=== PATIENT | male | born 1950 | race African-American/Black ===

== ENCOUNTER 2016-12-21 05:24 | Emergency (ER) | payer MEDICARE ==
[2016-12-21 06:27] LABS: ALT (SGPT) 8 U/L (8-55); AST (SGOT) 25 U/L (5-34); Alkaline Phosphatase 90 U/L (40-150); Anion Gap 21 mmol/L (10-20); BUN (Urea Nitrogen) 48 mg/dL (8.4-25.7); Bilirubin, Total 0.4 mg/dL (0.2-1.2); CK (CPK) 56 U/L (30-200); Calc. Creatinine Clearance 0 mL/min (70-130); Calcium 9.5 mg/dL (7.8-10.44); Carbon Dioxide 27 mmol/L (23-31); Chloride 96 mmol/L (98-107); Estimated GFR-MDRD 8; Globulin 5.6 g/dL (2.4-3.5)
[2016-12-21 06:32] LABS: Troponin I 0.026 ng/mL (< 0.028)
[2016-12-21 06:42] LABS: #Eosinphils 0.3 thou/uL (0.0-0.7); #Lymphocytes 1.7 thou/uL (1.20-3.40); #Monocytes 0.9 thou/uL (0.11-0.59); #Neutrophils 6.9 thou/uL (1.40-6.50); %Basophils 0.2 % (0.0-1.0); %Eosinophils 3.1 % (0.0-10.0); %Lymphocytes 17.1 % (21.0-51.0); Hematocrit 39.4 % (42.0-52.0); Mean Platelet Volume 6.1 fL (7.4-10.4); Red Blood Cell (RBC) Count 4.19 mill/uL (4.70-6.10); White Blood Cell (WBC) Count 9.7 thou/uL (4.8-10.8)
--- NOTE | 2016-12-21 07:44 | RAD ---
AP VIEW CHEST: HISTORY: Dyspnea. FINDINGS: AP view chest was obtained on 12/21/16. Comparison is made to previous exam from 11/19/16. AP view chest demonstrates cardiomegaly. Pulmonary vascular congestion is seen. Chronic diffuse interstitial fibrotic change is seen throughout the lungs concerning for interstitia l fibrosis. No significant interval change is seen since the previous comparison exam. No evidence of pneumothorax is seen. IMPRESSION: Diffuse interstitial changes concerning for interstitial fibrotic changes. POS: [facility]
== END 2016-12-21 06:45 | disposition home or self-care (01) ==
LOC: ERS 05:24
DX: I13.2 Hypertensive heart and chronic kidney disease with heart failure and with stage 5 chronic kidney disease, or end stage renal disease (principal); E11.22 Type 2 diabetes mellitus with diabetic chronic kidney disease; N18.6 End stage renal disease; I50.9 Heart failure, unspecified; E78.5 Hyperlipidemia, unspecified; J44.9 Chronic obstructive pulmonary disease, unspecified; Z87.891 Personal history of nicotine dependence; Z79.4 Long term (current) use of insulin; Z99.2 Dependence on renal dialysis; Z79.899 Other long term (current) drug therapy
CPT/HCPCS: 71010; 80053; 82553; 83880; 84484; 85025; 93005; 94760

== ENCOUNTER 2017-01-03 22:37 | Inpatient (IN) | payer MEDICARE ==
[2017-01-03] MEDS ORDERED: Dextrose 50% Abboject 50 ML SYRINGE ONE (22:44)
[2017-01-03 23:33] LABS: #Eosinphils 0.3 thou/uL (0.0-0.7); #Monocytes 0.7 thou/uL (0.11-0.59); #Neutrophils 6.6 thou/uL (1.40-6.50); %Basophils 0.2 % (0.0-1.0); %Eosinophils 3.4 % (0.0-10.0); %Lymphocytes 11.7 % (21.0-51.0); %Monocytes 8.2 % (0.0-10.0); Hematocrit 37.9 % (42.0-52.0); Mean Platelet Volume 5.8 fL (7.4-10.4); Red Blood Cell (RBC) Count 4.02 mill/uL (4.70-6.10); White Blood Cell (WBC) Count 8.6 thou/uL (4.8-10.8)
--- NOTE | 2017-01-03 23:39 | RAD ---
PORTABLE CHEST: Comparison: 12-21-16, 11-19-16 History: Dyspnea. FINDINGS: Heart size is enlarged. Chronic interstitial lung changes are felt to be fairly similar to the prior examinations. No definite significant interval change. IMPRESSION: Chronic lung change. POS: [facility]
[2017-01-03] MEDS ORDERED: D5 1/2 NS w/20 mEq KCL 0 ML ONE (23:40)
[2017-01-03 23:48] LABS: Anion Gap 6 mmol/L (-14-95); T. Carbon Dioxide 33.3 mmol/L (1.0-85.0); pH (Venous) 7.431 (7.35-7.45); vO2 Saturation-calc 86.5 % (0.0-100.0)
[2017-01-03 23:50] LABS: Lactic Acid - Sepsis 3.1 mmol/L (0.5-2.2)
[2017-01-04 00:10] LABS: ALT (SGPT) 8 U/L (8-55); AST (SGOT) 26 U/L (5-34); Alkaline Phosphatase 90 U/L (40-150); Anion Gap 17 mmol/L (10-20); BUN (Urea Nitrogen) 39 mg/dL (8.4-25.7); Bilirubin, Total 0.5 mg/dL (0.2-1.2); Calc. Creatinine Clearance 0 mL/min (70-130); Calcium 9.4 mg/dL (7.8-10.44); Carbon Dioxide 30 mmol/L (23-31); Chloride 97 mmol/L (98-107); Estimated GFR-MDRD 8; Globulin 5.6 g/dL (2.4-3.5); Protein, Total 8.8 g/dL (5.8-8.1)
[2017-01-04] MEDS ORDERED: Dextrose 10% in Water 1,000 ML IV SCH (00:30)
[2017-01-04] MEDS ORDERED: Sodium Chloride 0.9% 100 ML ONE (00:38)
[2017-01-04] MEDS ORDERED: Ondansetron HCl/PF 4 MG/2 ML Vial IVP PRN ×2 (02:32→02:34)
[2017-01-04] MEDS ORDERED: Ondansetron ODT 4 MG TAB SL PRN (02:32)
[2017-01-04] MEDS ORDERED: Vancomycin HCl 1 GM in Sodium Chloride 0.9% 250 ML 250 ML IVPB SCH (02:34)
[2017-01-04] MEDS ORDERED: Ondansetron ODT 4 MG TAB PO PRN (02:34)
[2017-01-04] MEDS ORDERED: HumaLOG 300 UNITS/3 ML VIAL SC PRN (02:34)
[2017-01-04] MEDS ORDERED: Dextrose 50% Abboject 50 ML SYRINGE SLOW IVP PRN (02:34)
[2017-01-04 02:58] LABS: Bilirubin Negative (Negative); Blood, Urine Large (Negative); Glucose, Urine (Dipstick) Negative (Negative); Ketone, Urine Negative (Negative); Nitrite Negative (Negative); Protein, Urine (Dipstick) 100 mg/dL (Neg-Trace); Urobilinogen 0.2 mg/dL (0.2-1.0)
[2017-01-04] MEDS: Dextrose 10% in Water 1,000 ML IV SCH ×2 (02:59→18:14)
[2017-01-04 03:00] LABS: Bacteria/HPF None Seen HPF (None Seen); RBC/HPF 21-50 HPF (0-3); WBC/HPF 21-50 HPF (0-3)
[2017-01-04 03:02] LABS: Hyaline Casts/LPF 0-3 HYALINE CAST LPF (0-3 Hyaline); Oval Fat Bodies/HPF None Seen HPF (None Seen); Renal Epithelial 0-3 HPF (0-3); Sperm/HPF None Seen HPF (None Seen); Transitional Epithelial NONE SEEN HPF (0-3); Trichomonas/HPF None Seen HPF (None Seen); Yeast-All Forms None Seen HPF (None Seen)
[2017-01-04] MEDS ORDERED: Vancomycin HCl 1.25 GM in Sodium Chloride 0.9% 250 ML 250 ML IVPB PRN (03:07)
[2017-01-04] MEDS ORDERED: Vancomycin HCl 1 GM in Premix Bag 1 BAG IVPB PRN (03:07)
[2017-01-04] MEDS ORDERED: Vancomycin HCl 750 MG in Sodium Chloride 0.9% 250 ML 250 ML IVPB PRN (03:07)
[2017-01-04] MEDS ORDERED: HOLD VANCOMYCIN FOR LEVEL >20 FS PRN (03:08)
[2017-01-04] MEDS ORDERED: Vancomycin HCl 500 MG in Sodium Chloride 0.9% 100 ML IVPB PRN (03:08)
[2017-01-04] MEDS ORDERED: Vancomycin Sliding Scale 1 EACH FS SCH (03:15)
[2017-01-04 03:52] LABS: Hemoglobin A1c 5.5 % (4.0-6.0)
[2017-01-04 03:58] LABS: Hematocrit 36.7 % (42.0-52.0); Mean Platelet Volume 5.7 fL (7.4-10.4); Neutrophil 69 % (42-75); Red Blood Cell (RBC) Count 3.91 mill/uL (4.70-6.10); White Blood Cell (WBC) Count 6.9 thou/uL (4.8-10.8)
[2017-01-04 04:10] LABS: ALT (SGPT) Less than 7 U/L (8-55); AST (SGOT) 24 U/L (5-34); Alkaline Phosphatase 81 U/L (40-150); Anion Gap 14 mmol/L (10-20); BUN (Urea Nitrogen) 40 mg/dL (8.4-25.7); Bilirubin, Total 0.5 mg/dL (0.2-1.2); Calc. Creatinine Clearance 11 mL/min (70-130); Carbon Dioxide 29 mmol/L (23-31); Chloride 97 mmol/L (98-107); Estimated GFR-MDRD 8; Globulin 5.3 g/dL (2.4-3.5); Protein, Total 8.4 g/dL (5.8-8.1)
--- NOTE | 2017-01-04 04:27 | HP ---
DATE OF ADMISSION: 01/03/2017 PRIMARY CARE PHYSICIAN: Dr. Keli Chauhan at [facility] in [place], [place]. PRIMARY RECIPROCATING DRILL OPERATOR: Dr. Sow. CHIEF COMPLAINT: Altered mental status and low blood sugar. HISTORY OF PRESENT ILLNESS: This is a 66-year-old -[place] male, who presents to [facility] in transfer by EMS after patient apparently was feeling ill at home and fell out of his bed. According to the , the couple had [place] from [place], at which point, the pa tient felt weak and tired. The patient apparently had gone to lay down in bed when he began yelling out to his . The states that when he acts this way it usually heralds low blood glucose i n the context of known diabetes on insulin therapy. The patient was evaluated and apparently had al tered mentation at which point, the notified EMS personnel. Patient was initially evaluated by the EMS, at which point, an initial glucose was relayed to be in the mid teens. The patient receiv ed D50 x2 amps and was transferred to the emergency room for evaluation. The patient required furth er ampule of D50 as well as initiation of D5 normal saline. The patient was also noted in the emerg ency room with hypotension and hypothermia with a temperature in the 94.6 range. The patient was pl aced on a Nestor Hugger and given intravenous fluids as well as D50. The patient was also evaluated f or potential pneumonia after chest imaging showed chronic changes with questionable superimposed acu te infiltrates. Patient received IV vancomycin, cefepime, as well as D5 and D10 infusions. The pat ient and report the patient has had difficulty with intermittent hypoglycemia over several week s apparently seeing their primary care provider in the last 1-2 weeks. The patient states his insul in was not reduced and he continues to take NPH insulin at approximately 50 units twice daily. The patient also states he takes a short-acting insulin at approximately 10 units twice daily. The dequan ent admits he has known he has had diabetes since 1994 and he says it becomes more difficult to cont rol and maintain adequate glucose. The patient denies any recent travel history, vaccinations, expo sures. Review of the medical record does show any emergency room visit on 12/23/2016 for shortness of breath. The patient underwent evaluation including chest imaging during this visit; however, was transferred to the dialysis unit where he has hemodialysis Wednesday, Wednesday, and Wednesday. Patient states he has been compliant with his dialysis sessions. PAST MEDICAL HISTORY: 1. End-stage renal disease with hemodialysis Wednesday, Wednesday, and Wednesday. 2. History of healthcare-associated pneumonia, 11/2016. 3. Interstitial lung disease/chronic obstructive pulmonary disease. 4. 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 5. Secondary hyperparathyroidism of renal origin. 6. Rheumatoid arthritis. 7. Recurrent hypoglycemia. 8. Hypertension. 9. History of pericarditis. PAST SURGICAL HISTORY: 1. Status post cataract removal from the left eye. 2. Status post AV fistula placement. CURRENT MEDICATIONS: 1. Albuterol sulfate 2.5 mg nebulized q.i.d. p.r.n. 2. Enteric coated aspirin 325 mg 1 tab p.o. daily. 3. Symbicort 160/4.5 two puffs inhaled b.i.d. 4. Humulin R 10 units subcutaneously b.i.d. 5. Humulin N 50 units subcutaneously b.i.d. 6. Metoprolol tartrate 50 mg p.o. b.i.d. 7. Multivitamin 1 tab p.o. daily. 8. Renvela 1600 mg p.o. t.i.d. 9. Zocor 20 mg p.o. at bedtime. 10. Spiriva HandiHaler 18 mcg inhaled daily. 11. Zantac 150 mg 1 tab p.o. daily. ALLERGIES: PENICILLIN, AZITHROMYCIN, and NAPROXEN. FAMILY HISTORY: Positive for diabetes mellitus type 2. SOCIAL HISTORY: The patient is , accompanied by his in the emergency room. 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 No alcohol or illicit drug use. Minimal activities of daily living, especially on hemodialysis days Wednesday, Wednesday, and Wednesday. REVIEW OF SYSTEMS: The following complete review of systems was negative, unless otherwise mentione d in the HPI or below: Constitutional: Weight loss or gain, ability to conduct usual activities. Skin: Rash, itching. Eyes: Double vision, pain. ENT/Mouth: Nose bleeding, neck stiffness, pain, tenderness. Cardiovascular: Palpitations, dyspnea on exertion, orthopnea. Respiratory: Shortnes s of breath, wheezing, cough, hemoptysis, fever or night sweats. Gastrointestinal: Poor appetite, abdominal pain, heartburn, nausea, vomiting, constipation, or diarrhea. Genitourinary: Urgency, fr equency, dysuria, nocturia. Musculoskeletal: Pain, swelling. Neurologic/Psychiatric: Anxiety, de pression. Allergy/Immunologic: Skin rash, bleeding tendency. PHYSICAL EXAMINATION: VITAL SIGNS: On admission, blood pressure 94/53, pulse 62, respiratory rate 22, temperature 95.8 de grees rectally. O2 saturation 98% on room air. GENERAL APPEARANCE: This is a 66-year-old -[place] male, ill-appearing, alert, in no acute distress. HEENT: Pupils are equal, round, and reactive to light and accommodation. Extraocular muscles are i ntact. No scleral icterus, no conjunctival injection. Nares patent. OP is clear. Oral mucosa dry . Edentulous. NECK: Supple, no cervical adenopathy, no thyromegaly, no carotid bruits, no JVD appreciated. Cervi christie spine with full active and passive range of motion. CHEST: Diminished breath sounds in the bases bilaterally. CARDIOVASCULAR: S1, S2, without noted murmur. ABDOMEN: Rounded, soft, nontender, nondistended. Bowel sounds are positive in all four quadrants. There is no hepatosplenomegaly, no abdominal bruits, no rebound, or guarding appreciated. EXTREMITIES: Warm and dry with fair turgor. No clubbing, cyanosis, or asymmetric edema appreciated . Pulses palpable distally at the dorsalis pedis, posterior tibial, and popliteal arteries bilatera lly. Capillary refill less than 2 seconds. NEUROLOGIC: Cranial nerves II through XII are grossly intact. No focal or lateralizing signs appre ciated. GENITOURINARY: Rivera catheter in place with dark chuy urine. PERTINENT LABORATORY AND X-RAY FINDINGS: Sodium 140, potassium 4.1, chloride 97, CO2 of 30, BUN 39, creatinine 8.43 with estimated GFR of 8, glucose ranging between 37-106. Lactic acid level 3.1, ca lcium 9.4. LFTs within normal limits. Albumin 3.2. CBC showed a white blood cell count 8.6, hemog lobin 12, hematocrit 38, platelet count 406 with 77% neutrophils. Venous blood gas pH 7.43. Portab le chest x-ray dated 01/03/2017 showed chronic interstitial lung changes bilaterally. EKG dated by my interpretation, shows sinus mechanism with heart rates in the 60s. Attenuated R waves noted in the precordial leads. Normal axis. No acute ST-T wave changes appreciated. ASSESSMENT AND PLAN: 1. Sepsis/systemic inflammatory response syndrome. Suspected pulmonary source given chest imaging findings. Continue vancomycin renally dosed for dialysis. Continue cefepime 2 grams IV q.12 hours. Blood cultures x2 pending. Repeat serial lactate per sepsis protocol. Continue D5 water at 100 mL per hour. 2. Hypoglycemia. Suspect secondary to #1. Hold all insulin therapy. Continue D10 infusion intrav enously and monitor serial Accu-Cheks. 3. Hypothermia. Suspect secondarily to #1. Continue Nestor Hugger. Continue treatment as outlined in #1. 4. Diabetes mellitus type 2, insulin-requiring. The patient will need adjustment and titration of current diabetic regimen due to repetitive hypoglycemic episodes. 5. End-stage renal disease with hemodialysis. We will consult Nephrology Service for timing of nex t hemodialysis session. 6. Chronic macrocytic anemia secondary to chronic kidney disease. No current evidence to suggest a cute blood loss. Repeat CBC in the a.m. 7. Prophylaxis. Sequential compression devices while in bed. Pepcid 20 mg p.o. b.i.d. Wound Care consult. 8. Code status is FULL. Surrogate medical decision maker is patient's spouse.
[2017-01-04] MEDS: Acetaminophen 500 MG TAB PO PRN (07:30)
--- NOTE | 2017-01-04 08:15 | PDOC.PN ---
- Subjective Encounter Start Date: 01/04/17 Encounter Start Time: 08:15 Subjective: eating with at bedside, he feel better this morning - Objective Resuscitation Status: Resuscitation Status FULL:Full Resuscitation MAR Reviewed: Yes Vital Signs & Weight: Vital Signs (12 hours) Temp Pulse Resp BP Pulse Ox 01/04/17 07:20 97.9 F 68 16 108/62 92 L 01/04/17 04:00 97.6 F 61 16 104/57 L 92 L 01/04/17 02:34 95 01/04/17 02:05 97.9 F 91 18 109/57 L 95 Weight Weight 190 lb I&O: 01/03/17 01/04/17 01/05/17 06:59 06:59 06:59 Intake Total 950 Output Total 300 Balance 650 Result Diagrams: 01/04/17 03:35 01/04/17 03:35 Additional Labs: Accuchecks 01/04/17 01/04/17 01/04/17 07:56 06:18 04:19 POC Glucose 75 49 L* 155 H 01/04/17 01/04/17 01/04/17 02:27 01:21 00:20 POC Glucose 71 67 L 37 L* Phys Exam - Physical Examination Constitutional: NAD HEENT: PERRLA, moist MMs Neck: supple, full ROM Respiratory: no wheezing rhonchi Cardiovascular: RRR Gastrointestinal: soft, non-tender Musculoskeletal: no edema Neurological: non-focal Psychiatric: normal affect, A&O x 3 Deviation from normal: trauma to rt 1st MTP Dx/Plan (1) PNA (pneumonia) Code(s): J18.9 - PNEUMONIA, UNSPECIFIED ORGANISM Status: Acute (2) COPD (chronic obstructive pulmonary disease) Status: Chronic (3) Diabetes type 2, controlled Code(s): E11.9 - TYPE 2 DIABETES MELLITUS WITHOUT COMPLICATIONS Status: Chronic (4) ESRD (end stage renal disease) on dialysis Code(s): N18.6 - END STAGE RENAL DISEASE; Z99.2 - DEPENDENCE ON RENAL DIALYSIS Status: Chronic (5) H/O rheumatoid arthritis Code(s): Z87.39 - PERSONAL HISTORY OF DISEASES OF THE MS SYS AND CONN TISS Status: Chronic (6) Hypertension Code(s): I10 - ESSENTIAL (PRIMARY) HYPERTENSION Status: Chronic (7) ILD (interstitial lung disease) Code(s): J84.9 - INTERSTITIAL PULMONARY DISEASE, UNSPECIFIED Status: Chronic - Plan cont current plan of care, continue antibiotics dialysis today, continue regimen. asymptomatic hypoglycemic episode this am * .
[2017-01-04] MEDS ORDERED: Ipratropium Bromide 2.5 ml Neb NEB PRN (08:36)
[2017-01-04] MEDS ORDERED: Albuterol Sulfate 2.5 mg/3 ml Neb ONE (08:45)
[2017-01-04] MEDS: Albuterol Sulfate 2.5 mg/3 ml Neb NEB SCH ×4 (08:52→23:23)
[2017-01-04] MEDS ORDERED: Spiriva 18 MCG CAP (Box of 5 Caps) INH SCH (09:00)
[2017-01-04] MEDS ORDERED: Famotidine 20 MG TAB PO SCH ×2 (09:00)
[2017-01-04] MEDS ORDERED: FLU VACC TS2017-18 (>65YR) 0.5 ML SYRINGE IM ONE (09:00)
[2017-01-04] MEDS ORDERED: Non-Formulary Item 1 EACH (Zantac 150 MG) PO SCH (09:00)
[2017-01-04] MEDS: Amlodipine 10 MG TAB PO SCH (10:07)
[2017-01-04] MEDS: Aspirin 325 MG TAB PO SCH (10:07)
[2017-01-04] MEDS: guaiFENesin ER 600 MG TAB PO SCH ×2 (10:08→20:18)
[2017-01-04] MEDS: Multivit, Therapeutic 1 TAB PO SCH (10:09)
[2017-01-04] MEDS: Metoprolol Tartrate 50 MG TAB PO SCH (10:09)
[2017-01-04] MEDS: Cefepime 1 GM, Admixture Fee 1 EACH in Sodium Chloride 0.9% 100 ML IVPB SCH (10:09)
[2017-01-04 11:06] LABS: Vancomycin, Random 20.4 ug/mL (See Comment)
[2017-01-04 12:23] LABS: Vancomycin, Random 12.7 ug/mL (See Comment)
--- NOTE | 2017-01-04 12:34 | CON ---
DATE OF CONSULTATION: 01/04/2017 NEPHROLOGY CONSULTATION REASON FOR CONSULTATION: End-stage renal disease, on maintenance hemodialysis. HISTORY OF PRESENTING ILLNESS: This is a 66-year-old gentleman admitted for pneumonia and altered mental status, dialyzed Wednesday, Wednesday, and Wednesday. The patient denies no headache, numbness, tingling, or weakness. Denies any nausea, vomiting, or chest pain. He was being treated for sepsis as well as hypoglycemia. PAST MEDICAL HISTORY: Significant for end-stage renal disease, on hemodialysis Wednesday, Wednesday, and Wednesday; healthcare pneumonia; interstitial lung disease; anemia; rheumatoid arthritis; hyperglycemia; hypertension; diabetes mellitus; cataract; AV fistula; tunneled dialysis catheter. HOME MEDICATION: List reviewed. HOSPITAL MEDICATION: List reviewed. ALLERGIES: Reviewed. FAMILY HISTORY: Negative for ESRD. SOCIAL ECONOMIC HISTORY: No alcohol or drug use. REVIEW OF SYSTEMS: Fifteen point review of systems was performed and negative except positive noted above. GENERAL: Weakness-. HEAD: Headache-. NECK: No swelling or lumps. NOSE: No epistaxis or discharge. EYES: No diplopia or pain. RESPIRATORY: Dyspnea-. CARDIOVASCULAR: Chest pain-. GASTROINTESTINAL: Nausea-. /SENIOR CARE MANAGER: Hematuria-. MUSCULOSKELETAL: No joint pain. NEUROPSYCHIATIC SYSTEMS: No suicidal ideation. No ideation. SKIN: Denies any rash or ulcer. CONSTITUTIONAL: No fever or chills. PHYSICAL EXAMINATION: GENERAL: Patient is awake, alert. VITAL SIGNS: Afebrile, pulse 79, breathing at 16, blood pressure 108/62. GENERAL APPEARANCE AND MENTAL STATUS: Fair. HEAD/NECK: Normocephalic. Atraumatic. EYES: EOMI. No deformity. EARS: Clear. No ulcers. NOSE: Intact. No lesions. MOUTH: Clear. No discharge. THROAT: Clear. No exudate. LUNGS: Clear. No crackles. CARDIAC: S1, S2. No rub. ABDOMEN: Benign. BS+. GENITALIA/RECTUM: Rivera absent. BACK/EXTREMITIES: Edema 0+ Ulcer-. NEUROLOGICAL: Alert and motor intact. SKIN: Rash-. Bruise-. LYMPHATICS: Edema-. Ulcer-. LABORATORY DATA: Show hemoglobin 11.5. ASSESSMENT AND PLAN: 1. Stage 6 chronic kidney disease. We will plan hemodialysis per schedule today. 2. Hypertension, stable. 3. Anemia, stable. 4. Medications based on glomerular filtration rate are appropriate. MTDD
[2017-01-04 16:31] LABS: Oxyhemoglobin 82.6 % (94.0-97.0); Sodium 141 mmol/L (135-148)
[2017-01-04 16:35] LABS: Vent NO
[2017-01-04 16:36] LABS: Mode BAG/MASK
[2017-01-04] MEDS ORDERED: Propofol 1,000 MG/100 ML VIAL IV ONE (16:44)
[2017-01-04] MEDS ORDERED: Vecuronium 10 MG VIAL ONE (16:54)
[2017-01-04 16:57] LABS: Oxyhemoglobin 88.8 % (94.0-97.0); Sodium 138 mmol/L (135-148)
[2017-01-04 16:58] LABS: Mechanical Tidal Volume 450 ml; Mode AC; Vent YES
[2017-01-04 17:06] LABS: Troponin I Less than 0.010 ng/mL (< 0.028)
[2017-01-04] MEDS ORDERED: Calcium Chloride 1 GM/10 ML Abboject SYRINGE ONE (17:15)
[2017-01-04] MEDS ORDERED: EPINEPHrine 1 MG/10 ML Abboject SYRINGE ONE (17:15)
[2017-01-04] MEDS ORDERED: Sodium Bicarb 50 MEQ/50 ML Abboject 8.4% SYRINGE ONE (17:15)
[2017-01-04 17:22] LABS: Oxyhemoglobin 91.3 % (94.0-97.0); Sodium 137 mmol/L (135-148)
[2017-01-04] MEDS ORDERED: Vecuronium 10 MG VIAL IVP SCH (17:30)
[2017-01-04 17:53] LABS: Chloride 101 mmol/L (98-107)
[2017-01-04 17:54] LABS: Calcium 8.1 mg/dL (7.8-10.44)
[2017-01-04 17:56] LABS: Anion Gap 21 mmol/L (10-20); Carbon Dioxide 19 mmol/L (23-31)
[2017-01-04 17:58] LABS: Calc. Creatinine Clearance 19 mL/min (70-130); Estimated GFR-MDRD 15
[2017-01-04 17:59] LABS: BUN (Urea Nitrogen) 21 mg/dL (8.4-25.7)
[2017-01-04] MEDS ORDERED: Vecuronium Bromide 20 MG VIAL IV PRN (18:03)
[2017-01-04] MEDS ORDERED: Sedation Protocol FS SCH (18:04)
[2017-01-04] MEDS ORDERED: DISCONTINUE PREVIOUS NARCOTIC PAIN MEDICATIONS AND BENZODIAZEPINES FS SCH (18:24)
[2017-01-04] MEDS ORDERED: Lorazepam 2 MG/ML VIAL SLOW IVP PRN (18:24)
[2017-01-04 18:31] LABS: Mechanical Tidal Volume 450 ml; Mode AC; Modified Allen's Test NOT DONE; Vent YES
--- NOTE | 2017-01-04 20:00 | RAD ---
AP CHEST: History: Recent intubation. Date: 01-04-17 Comparison: 01-03-17 FINDINGS: AP chest demonstrates EKG leads seen over the chest. The patient has been intubated. Endotracheal tu be is in good position, distal tip above the abran. Diffuse interstitial and airspace opacities seen bilaterally, unchanged since the previous day's exa m. EKG leads seen over the chest. IMPRESSION: 1. Recent intubation with endotracheal tube in good position. 2. Airspace and interstitial changes unchanged since the previous day's exam. POS: [facility]
[2017-01-04] MEDS: Acetaminophen/Codeine 30-300mg Tablet PO SCH (20:18)
[2017-01-04] MEDS: Vecuronium 10 MG VIAL IV PRN ×2 (20:28→23:10)
[2017-01-04] MEDS: Sterile Water 10 ML VIAL IVP PRN ×2 (20:28→23:11)
[2017-01-04] MEDS: Dextrose 5% in Water 1,000 ML IV PRN (21:02)
[2017-01-04] MEDS ORDERED: Dextrose 5% in Water 1,000 ML IV PRN (21:14)
[2017-01-04] MEDS ORDERED: Sodium Chloride 0.45% 1,000 ML IV PRN (23:48)
[2017-01-05] MEDS: Sterile Water 10 ML VIAL IVP PRN ×3 (02:14→21:14)
[2017-01-05] MEDS: Vecuronium 10 MG VIAL IV PRN ×6 (02:14→21:14)
[2017-01-05] MEDS: HumaLOG 300 UNITS/3 ML VIAL SC PRN ×5 (02:19→18:17)
[2017-01-05 04:14] LABS: #Lymphocytes 1.3 thou/uL (1.20-3.40); #Monocytes 1.4 thou/uL (0.11-0.59); #Neutrophils 14.4 thou/uL (1.40-6.50); %Basophils 0.1 % (0.0-1.0); %Eosinophils 0.3 % (0.0-10.0); %Lymphocytes 7.6 % (21.0-51.0); %Monocytes 8.3 % (0.0-10.0); Hematocrit 38.6 % (42.0-52.0); Red Blood Cell (RBC) Count 4.22 mill/uL (4.70-6.10); White Blood Cell (WBC) Count 17.1 thou/uL (4.8-10.8)
[2017-01-05 04:26] LABS: Anion Gap 19 mmol/L (10-20); BUN (Urea Nitrogen) 26 mg/dL (8.4-25.7); Calc. Creatinine Clearance 15 mL/min (70-130); Calcium 8.6 mg/dL (7.8-10.44); Carbon Dioxide 23 mmol/L (23-31); Chloride 96 mmol/L (98-107); Estimated GFR-MDRD 12
--- NOTE | 2017-01-05 05:57 | CON ---
DATE OF CONSULTATION: 01/04/2017 HISTORY OF PRESENTING ILLNESS: Mr. Bear is a 66-year-old male followed for some time. I believe he has the usual interstitial pneumonitis pattern of rheumatoid lung disease. 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 Apparently, he was admitted early this morning with a diagnosis of hypoglycemia and sepsis and pneumonia. He had dialysis today. After dialysis, a code green followed by a code blue was called. He has arrived in the ICU after he was resuscitated. PAST MEDICAL HISTORY: Remarkable for: 1. Recent admission reportedly for pneumonia, November it is in the multiple dictations that he has obstructive lung disease. He does not have chronic obstructive pulmonary disease based on serial pulmonary function tests. 2. End-stage renal disease, on dialysis. 3. Hypertension. 4. History of pericarditis. 5. History of cataract surgery. 6. History of multiple vascular access procedures. 7. History of distant tobacco use, but it has been over 30 years ago. FAMILY HISTORY: Negative for lung disease at an early age. SOCIAL HISTORY: He is a nonsmoker, nondrinker. 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 REVIEW OF SYSTEMS: Not obtainable. PHYSICAL EXAMINATION: VITAL SIGNS: By exam, he has flail chest now, I suspect this is from CPR and chronic intermittent steroid use. His heart rate is in the 70s. Blood pressure 108/62, respiratory rate is 30 per mechanical ventilation. HEENT: His sclerae are anicteric. NEUROLOGIC: He is unresponsive after his code. NECK: Supple. LUNGS: Remarkable for crackles bilaterally. HEART: Regular rhythm. ABDOMEN: Soft. EXTREMITIES: Without asymmetry. LABORATORY DATA: White count 6.9, hemoglobin 11.5, platelets 380,000. Sodium 137, potassium 3.7, chloride 101, glucose 159. Remainder of his labs are pending. Blood gas after he was chemically paralyzed 7.25, CO2 of 44, pO2 of 75. Blood gas at 1629 was 7.13, CO2 of 68, pO2 of 75. Chest radiograph done at 1054 last night shows no changes in his interstitial markings. IMPRESSION: 1. Rheumatoid arthritis-induced interstitial lung disease. 2. ? co-existent infection. I did not interview him or see him when he came in , but the hypoglycemia could be associated with an infectious process. It does not appear hypoglycemia was responsible for his cardiac arrest. Post-arrest EKG showed lateral ST depression, but once he was chemically paralyzed, this had resolved by my review of the EKG. Cardiology has been consulted. His acid/ base disorder is predominantly respiratory and should improve with ventilation overnight. Chest radiograph still has not been released to the viewing system, although it has been done postcode. LUIS FERNANDO
[2017-01-05] MEDS: Albuterol Sulfate 2.5 mg/3 ml Neb NEB SCH ×4 (06:32→23:22)
[2017-01-05 07:55] LABS: Oxyhemoglobin 97.3 % (94.0-97.0); Sodium 135 mmol/L (135-148)
[2017-01-05 07:57] LABS: Mechanical Tidal Volume 450 ml; Modified Allen's Test POSITIVE; Vent YES
[2017-01-05 07:58] LABS: Mode AC; Pressure Support 10 cmH2O
--- NOTE | 2017-01-05 08:38 | RAD ---
PORTABLE UPRIGHT FRONTAL CHEST: Date: 01-05-17 Comparison: 01-04-17 History: Pneumonia, CPR. FINDINGS: There are prominent increased linear interstitial densities noted within both lung bases with underl vargas bronchiectatic change as well as severe honeycombing. There is a nasogastric tube extending into the left upper quadrant. Endotracheal tube is in proper p osition. There are superimposed airspace opacities identified within both lung bases in the lateral aspect of the mid left lung zone, improved since the 01-04-17 examination. IMPRESSION: 1. Improving nonspecific bilateral airspace disease. Severe chronic underlying basilar fibrotic jeronimo ge. POS: [facility]
[2017-01-05] MEDS: Metoprolol Tartrate 50 MG TAB PO SCH (08:55)
[2017-01-05] MEDS: Cefepime 1 GM, Admixture Fee 1 EACH in Sodium Chloride 0.9% 100 ML IVPB SCH (08:55)
[2017-01-05] MEDS: Multivit, Therapeutic 1 TAB PO SCH (08:55)
[2017-01-05] MEDS: Aspirin 325 MG TAB PO SCH (08:55)
[2017-01-05] MEDS: guaiFENesin ER 600 MG TAB PO SCH ×2 (08:55→20:03)
[2017-01-05] MEDS: Amlodipine 10 MG TAB PO SCH (08:55)
[2017-01-05] MEDS: Famotidine 20 MG TAB PO SCH (09:46)
--- NOTE | 2017-01-05 11:59 | EKG ---
Test Reason : CODE BLUE Blood Pressure : / mmHG Vent. Rate : 101 BPM Atrial Rate : 091 BPM P-R Int : 224 ms QRS Dur : 086 ms QT Int : 330 ms P-R-T Axes : 028 -40 173 degrees QTc Int : 427 ms Undetermined rhythm PVC's Left axis deviation Inferior infarct , age undetermined Abnormal ECG When compared with ECG of 04-JAN-2017 00:45, (Unconfirmed) Significant changes have occurred Confirmed by DR. Marielle FALK (3) on 01/05/2017 11:59:08 AM Referred By: GIA Confirmed By:DR. Marielle FALK
--- NOTE | 2017-01-05 12:00 | EKG ---
Test Reason : CODE BLUE Blood Pressure : / mmHG Vent. Rate : 102 BPM Atrial Rate : 100 BPM P-R Int : 200 ms QRS Dur : 088 ms QT Int : 356 ms P-R-T Axes : 012 -43 181 degrees QTc Int : 463 ms Undetermined rhythm PVC's Left axis deviation Inferior infarct (cited on or before 04-JAN-2017) Abnormal ECG When compared with ECG of 04-JAN-2017 16:36, (Unconfirmed) Current undetermined rhythm precludes rhythm comparison, needs review Inverted T waves have replaced nonspecific T wave abnormality in Anterior leads Confirmed by DR. Marielle FALK (3) on 01/05/2017 11:59:40 AM Referred By: GIA Confirmed By:DR. Marielle FALK
--- NOTE | 2017-01-05 12:01 | EKG ---
Test Reason : Blood Pressure : / mmHG Vent. Rate : 090 BPM Atrial Rate : 090 BPM P-R Int : 202 ms QRS Dur : 096 ms QT Int : 412 ms P-R-T Axes : 073 -19 153 degrees QTc Int : 504 ms Normal sinus rhythm Low voltage QRS Inferior infarct (cited on or before 04-JAN-2017) Prolonged QT Abnormal ECG When compared with ECG of 04-JAN-2017 16:38, (Unconfirmed) Previous ECG has undetermined rhythm, needs review Non-specific change in ST segment in Anterior leads T wave inversion no longer evident in Anterolateral leads Confirmed by DR. Marielle FALK (3) on 01/05/2017 12:00:30 PM Referred By: LETICIA Confirmed By:DR. Marielle FALK
--- NOTE | 2017-01-05 15:23 | PDOC.PN ---
- Subjective Encounter Start Date: 01/05/17 Encounter Start Time: 06:40 Pt seen for followup re: acute respiratory failure. Intubated, unable to provide history or complete ROS. - Objective Resuscitation Status: Resuscitation Status FULL:Full Resuscitation MAR Reviewed: Yes Vital Signs & Weight: Vital Signs (12 hours) Temp Pulse Resp BP BP Pulse Ox 01/05/17 14:52 89 132/68 01/05/17 13:00 83 121/53 L 01/05/17 12:58 80 30 H 99 01/05/17 12:00 98.4 F 72 32 H 97 01/05/17 10:21 78 93/55 L 01/05/17 08:55 100 147/91 H 01/05/17 08:00 97.9 F 100 30 H 147/91 H 100 01/05/17 07:44 97.9 F 100 30 H 100 01/05/17 06:35 100 158/73 H 01/05/17 06:32 102 H 30 H 99 01/05/17 04:00 98.8 F 26 H Weight Admit Weight 190 lb Weight 192 lb 14.472 oz Most Recent Monitor Data Heart Rate from ECG 88 NIBP 145/82 NIBP BP-Mean 100 Respiration from ECG 27 SpO2 100 I&O: 01/04/17 01/05/17 01/06/17 06:59 06:59 06:59 Intake Total 950 717.4 100 Output Total 300 15 200 Balance 650 702.4 -100 Result Diagrams: 01/05/17 03:36 01/05/17 03:36 Additional Labs: Accuchecks 01/05/17 01/05/17 01/05/17 13:39 11:50 09:54 POC Glucose 173 H 135 H 163 H 01/05/17 01/05/17 01/05/17 07:12 05:40 04:15 POC Glucose 131 H 149 H 131 H 01/05/17 01/04/17 01/04/17 02:09 23:48 21:56 POC Glucose 188 H 148 H 190 H 01/04/17 01/04/17 01/04/17 20:09 17:13 15:52 POC Glucose 256 H 140 H 113 H 01/04/17 06:25 POC Glucose 43 L* EKG Reviewed by me: Yes (Tele: NSR) Phys Exam - Physical Examination Intubated HEENT: moist MMs ETT Neck: no nodes Respiratory: clear to auscultation bilateral Cardiovascular: RRR Gastrointestinal: soft, non-tender, no distention, positive bowel sounds Musculoskeletal: pulses present No spontaneous movements of four limbs Deviation from normal: Unable to assess mood, affect or orientation to person, place or time Skin: no rash, normal turgor, cap refill <2 seconds Dx/Plan (1) Acute respiratory failure Code(s): J96.00 - ACUTE RESPIRATORY FAILURE, UNSP W HYPOXIA OR HYPERCAPNIA Status: Acute Qualifiers: Respiratory failure complication: hypoxia and hypercapnia Qualified Code(s) : J96.01 - Acute respiratory failure with hypoxia; J96.02 - Acute respiratory failure with hypercapnia; J96.02 - Acute respiratory failure with hypercapnia; J96.02 - Acute respiratory failure with hypercapnia (2) Sepsis Code(s): A41.9 - SEPSIS, UNSPECIFIED ORGANISM Status: Acute (3) DM2 (diabetes mellitus, type 2) Status: Chronic (4) ESRD (end stage renal disease) on dialysis Code(s): N18.6 - END STAGE RENAL DISEASE; Z99.2 - DEPENDENCE ON RENAL DIALYSIS Status: Chronic (5) Hypertension Code(s): I10 - ESSENTIAL (PRIMARY) HYPERTENSION Status: Chronic - Plan continue antibiotics * . Continue IV cefepime, IV vancomycin Pt intubated, mechanically ventilated. PCCM/cardiology/nephrology services following. Continue accuchecks, insulin sliding scale. Dialysis per nephrology service. Review of Systems - Medications/Allergies Allergies/Adverse Reactions: Allergies Allergy/AdvReac Type Severity Reaction Status Date / Time Penicillins Allergy Severe Anaphylaxis Verified 10/31/15 15:37 azithromycin [From Zithromax] Allergy Verified 01/04/17 03:49 naproxen sodium [From Aleve] AdvReac Verified 01/04/17 03:49 Medications: Current Medications Acetaminophen (Tylenol) 1,000 mg PO Q6H PRN PRN Reason: Headache/Fever or Mild Pain Last Admin: 01/04/17 07:30 Dose: 1,000 mg Acetaminophen/Codeine Phosphate (Tylenol #3) 1 tab PO HS JILLIAN Last Admin: 01/04/17 20:18 Dose: 1 tab Albuterol Sulfate (Ventolin) 2.5 mg NEB [id number] JILLIAN Last Admin: 01/05/17 12:58 Dose: 2.5 mg Amlodipine Besylate (Norvasc) 10 mg PO DAILY [facility] Last Admin: 01/05/17 08:55 Dose: 10 mg Aspirin (Aspirin) 325 mg PO DAILY [facility] Last Admin: 01/05/17 08:55 Dose: 325 mg Dextrose/Water (Dextrose 50%) 25 gm SLOW IVP PRN PRN PRN Reason: Hypoglycemia Last Admin: 01/04/17 06:24 Dose: 25 gm Famotidine (Pepcid) 20 mg PO DAILY [facility] Last Admin: 01/05/17 09:46 Dose: 20 mg Glucagon (Glucagon) 1 mg IM PRN PRN PRN Reason: Hypoglycemia Guaifenesin (Mucinex) 600 mg PO BID [facility] Last Admin: 01/05/17 08:55 Dose: 600 mg Cefepime HCl 1 gm/Miscellaneous Medication 1 each/ Sodium Chloride 100 mls @ 200 mls/hr IVPB Q24HR [facility] Last Admin: 01/05/17 08:55 Dose: 100 mls Dextrose/Water (D5w) 1,000 mls @ 75 mls/hr IV .[id number] PRN PRN Reason: Hypoglycemia Last Admin: 01/04/17 21:02 Dose: 1,000 mls Vancomycin HCl 1.25 gm/ Sodium (Chloride) 250 mls @ 166.667 mls/hr IVPB .AT DIALYSIS PRN PRN Reason: IF VANC LEVEL <= 5.0 Vancomycin HCl 1 gm/ Device 200 mls @ 200 mls/hr IVPB .AT DIALYSIS PRN PRN Reason: IF VANC LEVEL >5 AND <=10 Vancomycin HCl 750 mg/ Sodium (Chloride) 250 mls @ 250 mls/hr IVPB .AT DIALYSYS PRN PRN Reason: IF VANC LEVEL >10 AND <= 15 Last Admin: 01/04/17 14:55 Dose: 250 mls Vancomycin HCl 500 mg/ Sodium (Chloride) 100 mls @ 100 mls/hr IVPB .AT DIALYSIS PRN PRN Reason: IF VANC LEVEL >15 AND <=20 Fentanyl (Fentanyl Cadd) 250 mls @ 0 mls/hr IVPB INF JILLIAN; Titrate PRN Reason: Protocol Stop: 02/03/17 18:24 Fentanyl Citrate (Fentanyl Bolus) 250 mls @ 0 mls/hr IVPB PRN PRN; As Directed PRN Reason: VENTILATION SEDATION PROTOCOL Stop: 02/03/17 18:24 Dextrose/Water (D5w) 1,000 mls @ 0 mls/hr IV INF PRN; As Directed PRN Reason: HYPOGLYCEMIA PROTOCOL Sodium Chloride (1/2 Normal Saline) 1,000 mls @ 75 mls/hr IV .[id number] PRN PRN Reason: if BS still running high Insulin Human Lispro (Humalog) 0 units SC .MODERATE SLIDING SC PRN; Protocol PRN Reason: MODERATE SLIDING SCALE Last Admin: 01/05/17 13:40 Dose: 2 unit Ipratropium [place] (Atrovent) 2.5 ml NEB [id number] PRN PRN Reason: SOB &/or Wheezing Last Admin: 01/04/17 08:52 Dose: 2.5 ml Lorazepam (Ativan) 2 mg SLOW IVP Q2H PRN PRN Reason: Anxiety to achieve Tian 2-3 Stop: 02/03/17 18:24 Metoprolol Tartrate (Lopressor) 50 mg PO DAILY [facility] Last Admin: 01/05/17 08:55 Dose: 50 mg Miscellaneous Medication (Pharmacy To Dose) 0 each IVPB PRN PRN PRN Reason: [facility] Pharmacy to Dose Miscellaneous Medication (Sedation Protocol) 1 each FS ONE [facility] Stop: 02/03/17 18:05 Morphine Sulfate (Morphine Sulfate) 2 mg SLOW IVP Q2H PRN PRN Reason: TO ACHIEVE VOLODYMYR SCORE 2-3 Stop: 02/03/17 18:24 Multivitamins (Theragran) 1 tab PO DAILY [facility] Last Admin: 01/05/17 08:55 Dose: 1 tab Hold Vancomycin For (Level >20) 0 each FS .AT DIALYSIS PRN PRN Reason: HOLD VANC IS > 20 Discontinue Previous Narcotic Pain Medications And Benzodiazepines 1 each FS .ONE [facility] Stop: 02/03/17 18:24 Ondansetron HCl (Zofran Odt) 4 mg PO Q6H PRN PRN Reason: Nausea/Vomiting Ondansetron HCl (Zofran) 4 mg IVP Q6H PRN PRN Reason: Nausea/Vomiting Propofol (Diprivan) 1,000 mg IV INF PRN; Protocol PRN Reason: TO ACHIEVE TIAN SCORE 2-3 Stop: 02/03/17 18:24 Sodium Chloride (Flush - Normal Saline) 10 ml IVF Q12HR JILLIAN Last Admin: 01/05/17 09:46 Dose: 10 ml Sodium Chloride (Flush - Normal Saline) 10 ml IVF PRN PRN PRN Reason: Saline Flush Sterile Water (Water For Injection) 10 ml IVP Q1H PRN PRN Reason: NEEDED FOR RECONSTITUTION Last Admin: 01/05/17 05:34 Dose: 10 ml Vecuronium [place] (Norcuron) 10 mg IV Q1H PRN PRN Reason: Agitation Last Admin: 01/05/17 12:20 Dose: 10 mg
--- NOTE | 2017-01-05 17:03 | PRG ---
DATE OF SERVICE: 01/05/2017 SUBJECTIVE: Mr. Bear is not awake when his paralytics wore off. He is not following commands. An EEG has been ordered. OBJECTIVE: VITAL SIGNS: His heart rate is 89, blood pressure 132/68, respiratory rate is 30. LUNGS: Clear anteriorly. Laterally, he has crackles. HEART: Regular rhythm. ABDOMEN: Soft. LABORATORY DATA: White count 17.1, hemoglobin 11.8, platelets 357. Sodium 133 , potassium 5.1, chloride 96, bicarb 23, BUN 26, creatinine 5.8. Blood gas 7.42 , CO2 of 42, pO2 of 223. IMPRESSION: 1. Probable anoxic brain injury. 2. Status post cardiorespiratory arrest. PLAN: EEG. Cultures have been reviewed and they are negative so far. I had a long discussion with his about his history prior to admission. His hypoglycemia, based on her history, is most likely related to him taking his diabetes medicines the night before and not eating. She said she made dinner, but he said he were not hungry and did not eat much. I doubt he is septic and I doubt sepsis was the cause of his arrest. I suspect this was coronary artery related. We will continue with antimicrobial therapy for now. We will try to simplify therapy within 24-48 hours. Prognosis for functional recovery, I believe, is quite poor at this time. LUIS FERNANDO
--- NOTE | 2017-01-05 17:29 | PRG ---
DATE OF SERVICE: 01/05/2017 SUBJECTIVE: This is a 66-year-old gentleman with end-stage renal disease. The patient had a cardia c arrest last evening. PHYSICAL EXAMINATION: GENERAL: On examination, patient is resting. VITAL SIGNS: Afebrile, pulse 80, breathing at 16, blood pressure 145/82. HEENT: Normocephalic, atraumatic. NECK: Supple. No JVD. CHEST: Symmetrical and clear. CARDIOVASCULAR: Shows S1, S2. No rub. ABDOMEN: Soft. Bowel sounds positive. EXTREMITIES: No edema. LABORATORY DATA: Show hemoglobin of 11.8. ASSESSMENT AND RECOMMENDATIONS: 1. Stage 6 chronic kidney disease. No indication for dialysis. 2. Hypertension, stable. 3. Anemia, stable. 4. Medications based on glomerular filtration rate are appropriate.
[2017-01-05] MEDS: Acetaminophen/Codeine 30-300mg Tablet PO SCH ×2 (18:37→20:04)
[2017-01-06] MEDS: Dextrose 5% in Water 1,000 ML IV PRN ×2 (00:04→18:31)
[2017-01-06] MEDS: HumaLOG 300 UNITS/3 ML VIAL SC PRN ×2 (02:36→06:50)
[2017-01-06 05:06] LABS: #Eosinphils 0.1 thou/uL (0.0-0.7); #Monocytes 1.3 thou/uL (0.11-0.59); #Neutrophils 12.3 thou/uL (1.40-6.50); %Basophils 0.3 % (0.0-1.0); %Eosinophils 0.4 % (0.0-10.0); %Lymphocytes 6.7 % (21.0-51.0); Hematocrit 36.4 % (42.0-52.0); Mean Platelet Volume 6.1 fL (7.4-10.4); Red Blood Cell (RBC) Count 4.06 mill/uL (4.70-6.10); White Blood Cell (WBC) Count 14.8 thou/uL (4.8-10.8)
[2017-01-06 05:24] LABS: Anion Gap 17 mmol/L (10-20); BUN (Urea Nitrogen) 36 mg/dL (8.4-25.7); Calc. Creatinine Clearance 13 mL/min (70-130); Calcium 8.4 mg/dL (7.8-10.44); Carbon Dioxide 24 mmol/L (23-31); Chloride 92 mmol/L (98-107); Estimated GFR-MDRD 10
[2017-01-06] MEDS: Albuterol Sulfate 2.5 mg/3 ml Neb NEB SCH ×4 (06:38→23:54)
[2017-01-06 07:09] LABS: Mechanical Tidal Volume 450 ml; Mode AC; Oxyhemoglobin 89.7 % (94.0-97.0); Sodium 131 mmol/L (135-148); Vent YES
[2017-01-06] MEDS: Morphine 4 MG/ML Carpuject SLOW IVP PRN (07:14)
--- NOTE | 2017-01-06 07:51 | PDOC.PN ---
- Subjective Encounter Start Date: 01/06/17 Encounter Start Time: 07:47 Mr. Bear is intubated. He will awake to voice, and follow commands. He indicates no difficulty with breathing. - Objective Resuscitation Status: Resuscitation Status FULL:Full Resuscitation MAR Reviewed: Yes Vital Signs & Weight: Vital Signs (12 hours) Temp Pulse Resp Pulse Ox 01/06/17 06:38 70 01/06/17 04:00 98.9 F 01/06/17 00:00 98.4 F 30 H 01/05/17 23:22 96 30 H 100 01/05/17 22:00 30 H 01/05/17 20:00 98.7 F 93 30 H 100 Weight Admit Weight 190 lb Weight 194 lb 3.636 oz Most Recent Monitor Data Heart Rate from ECG 95 NIBP 106/50 NIBP BP-Mean 72 Respiration from ECG 33 SpO2 98 I&O: 01/05/17 01/06/17 01/07/17 06:59 06:59 06:59 Intake Total 717.4 1000 Output Total 15 455 Balance 702.4 545 Result Diagrams: 01/06/17 03:51 01/06/17 03:51 Additional Labs: Accuchecks 01/06/17 01/06/17 01/06/17 06:49 04:03 02:34 POC Glucose 158 H 168 H 170 H 01/06/17 01/05/17 01/05/17 00:10 22:28 20:16 POC Glucose 140 H 119 H 131 H 01/05/17 01/05/17 01/05/17 18:15 15:37 13:39 POC Glucose 151 H 220 H 173 H 01/05/17 01/05/17 01/04/17 11:50 09:54 06:25 POC Glucose 135 H 163 H 43 L* Phys Exam - Physical Examination HEENT: PERRLA + rhonchi bilaterally Cardiovascular: RRR, no significant murmur Gastrointestinal: soft, non-tender, positive bowel sounds Musculoskeletal: no edema Dx/Plan - Plan * Acute respiratory failure- possibly from Rheuamtoid Interstitial Lung disease , vs. Infectious Pneumonitis or both * Continue Meropenem and Vancomycin * Patient continue with Ventilator support * Hypoglycemia- resolved- continue SSI * ESRD- continue maintenance HD * Hyponatremia- likely will be corrected with dialysis * HTN- blood pressure is controlled.
[2017-01-06] MEDS: Propofol 1,000 MG/100 ML VIAL IV PRN (08:25)
--- NOTE | 2017-01-06 08:42 | EEG ---
Referring Physician: Marielle KELLY EEG # [id number] TEST TYPE: ROUTINE PORTABLE INPATIENT REPORT: AN EEG USING THE [employer]NATIONAL TEN-TWENTY SYSTEM OF ELECTRODE PLACEMENT WAS PERFORMED. The background activity is predominately a 6 hertz medium amplitude theta frequency. Some occasional, brief alpha activity is seen in some limited areas. No epileptiform features were present. Photic stimulation was unremarkable. IMPRESSION: THIS IS AN ABNORMAL STUDY FOR THE FINDINGS OF DIFFUSE SLOWING CONSISTENT WITH A DIFFUSE ENCEPHALOPATHIC PROCESS. NO EPILEPTIFORM FEATURES WERE NOTED. Surface Plate Finisher: AISLINN Eviction Specialist: EEG.SHI GOULD
[2017-01-06] MEDS ORDERED: Calcium Chloride 1 GM/10 ML Abboject SYRINGE ONE (10:00)
[2017-01-06] MEDS ORDERED: EPINEPHrine 1 MG/10 ML Abboject SYRINGE ONE (10:00)
[2017-01-06] MEDS ORDERED: Atropine Sulfate 1 mg/10 ml Syringe ONE (10:00)
[2017-01-06] MEDS: guaiFENesin ER 600 MG TAB PO SCH ×2 (10:14→21:44)
[2017-01-06] MEDS: Multivit, Therapeutic 1 TAB PO SCH (10:14)
[2017-01-06] MEDS: Famotidine 20 MG TAB PO SCH (10:15)
[2017-01-06] MEDS: Aspirin 325 MG TAB PO SCH (10:16)
[2017-01-06] MEDS: Amlodipine 10 MG TAB PO SCH (10:16)
[2017-01-06] MEDS: Metoprolol Tartrate 50 MG TAB PO SCH (10:16)
[2017-01-06] MEDS: Cefepime 1 GM, Admixture Fee 1 EACH in Sodium Chloride 0.9% 100 ML IVPB SCH (10:27)
[2017-01-06 10:28] LABS: Oxyhemoglobin 89.9 % (94.0-97.0); Sodium 130 mmol/L (135-148)
[2017-01-06] MEDS: Heparin 5,000 UNITS/ML VIAL SC SCH ×2 (10:28→21:44)
[2017-01-06 10:33] LABS: Mechanical Tidal Volume 450 ml; Mode AC/VC+; Vent YES
--- NOTE | 2017-01-06 11:29 | OP ---
DATE OF PROCEDURE: 01/06/2017 SERVICE: Pulmonary Medicine PROCEDURE: Emergent endotracheal intubation. CONSENT: Procedure was performed emergently secondary to clinical condition and respiratory failure . STAFF PHYSICIAN: Wali Quiles M.D. MEDICATIONS: None. PREPROCEDURE DIAGNOSES: Respiratory failure. POSTPROCEDURE DIAGNOSES: Respiratory failure. DESCRIPTION OF PROCEDURE: Vital sign monitoring was accomplished by noninvasive hemodynamic monitor ing, pulsoximetry and telemetry. In the supine position, the patient was preoxygenated with bag natividad ve mask ventilation maintaining saturations of 100%. Induction anesthesia was not required as the p atient was completely obtunded at that time. A GlideScope was inserted through the mouth, offering clear identification of the posterior oropharynx and laryngeal structures with a grade I view. An e ndotracheal tube was visualized passing through the vocal cords. Placement was confirmed by condens ation in the endotracheal tube, and by axillary chest auscultation. The endotracheal tube was secur ed at 24 cm, measured at the teeth. The patient was placed on mechanical ventilation with good retu rn of volumes. Post-procedure x-ray revealed good location of the endotracheal tube within the trachea. ESTIMATED BLOOD LOSS: None. COMPLICATIONS: None.
--- NOTE | 2017-01-06 12:18 | PRG ---
DATE OF SERVICE: 01/06/2017 SUBJECTIVE: This is a 66-year-old gentleman being seen for end-stage renal disease. The patient re sponds to simple commands. PHYSICAL EXAMINATION: GENERAL: Patient is resting. VITAL SIGNS: Afebrile, pulse 60, breathing at 16, blood pressure 85/41. OBJECTIVE: See above. Awake, alert, in no acute distress. GENERAL APPEARANCE AND MENTAL STATUS: Fair. HEAD/NECK: Normocephalic. Atraumatic. EYES: EOMI. No deformity. EARS: Clear. No ulcers. NOSE: Intact. No lesions. MOUTH: Clear. No discharge. THROAT: Clear. No exudate. LUNGS: Clear. No crackles. CARDIAC: S1, S2. No rub. ABDOMEN: Benign. BS+. GENITALIA/RECTUM: Rivera absent. BACK/EXTREMITIES: Edema 0+ Ulcer- NEUROLOGICAL: The patient is resting. SKIN: Rash- Bruise- LYMPHATICS: Edema- Ulcer- LABORATORY: Hemoglobin 11.5, potassium 4.5. ASSESSMENT AND RECOMMENDATIONS: 1. Stage 6 chronic kidney disease. No indication for dialysis. 2. Hypotension, would recommend 200 mL bolus titrate the blood pressure over 90. 3. Anemia, stable. 4. Medications based on glomerular filtration rate are appropriate.
--- NOTE | 2017-01-06 12:53 | RAD ---
UPRIGHT PORTABLE CHEST ONE VIEW: HISTORY: A 66-year-old male, post intubation, code blue, respiratory arrest. COMPARISON: 01/05/2017 FINDINGS: Monitor leads overly the chest. There is minimal motion artifact. Endotracheal tube is in a satisf actory location. It appears that the NG tube has been removed when compared to the prior study. Th ere are patchy bilateral interstitial and reticulonodular parenchymal changes throughout both lungs, which is stable. In addition, there appears to be a somewhat more confluent opacity in the right i nfrahilar region and right lower lobe, when compared to the prior study. The upper lung zones appea r stable. IMPRESSION: 1. The nasogastric tube is not definitely visualized 2. The endotracheal tube is in a satisfactory location. 3. Stable, chronic appearing, interstitial and reticulonodular parenchymal changes bilaterally with a somewhat more diffusely opaque density over the right infrahilar region and right lower lobe, pos sibly some new confluent parenchymal process. Continue short-term followup. POS: [facility]
[2017-01-06] MEDS: Fentanyl 20 MCG/ML 250 ML IVPB SCH (13:29)
--- NOTE | 2017-01-06 13:29 | CON ---
DATE OF CONSULTATION: 01/06/2017 REFERRING PHYSICIAN: Jesus Herrera M.D. and Gurinder Shaffer D.O. REASON FOR CONSULTATION: Bradycardia. HISTORY OF PRESENT ILLNESS: Mr. Bear is a 66-year-old black gentleman with rheumatoid lung dise ase; end-stage renal disease; and diabetes, managed on insulin. He presented on 01/03/2017 with alt ered mental status and blood sugars documented in the mid teens. He had apparently coded with CPR i n the emergency department due to profound hypotension, inability to get a pulse and documented hypo thermia with temperatures in the 94.6 degrees Fahrenheit range. He was resuscitated, placed on vent ilatory support, and was found to be markedly acidotic with a primary respiratory acidosis and pH of 7.2. He apparently was bradycardiac and after resuscitation with improved oxygenation and temperat ure, his heart rate returned to normal, and has remained stable until today. I spoke with Dr. Herrera via telephone on Wednesday evening after consult was initially called and his br adycardia had resolved and thought to be primarily due to hypoxia and profound acidosis. There was no urgent need for Cardiology consultation at that time per our conversation. Earlier today, however, Mr. Bear awoke and was scratching his head around violently dislodging h is ET tube. He became hypoxic yet again with resultant bradycardia while the hypoxia continued. He was reintubated with resolution of this bradycardia yet again and his heart rates are now stable po st-reintubation. When he is acidotic and hypoxic, his bradycardia is a sinus bradycardia, and there is no evidence of any high-grade heart block or conduction abnormality. His LV function is normal with an estimated 60%-65% with mild concentric left ventricular hypertrophy. Structurally his heart is normal with no significant valvular abnormalities other than mild mitral regurgitation on last e chocardiogram. PAST MEDICAL HISTORY: 1. End-stage renal disease with hemodialysis Wednesday, Wednesday, and Wednesday. 2. 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 3. Chronic kidney disease with resultant anemia. 4. Recent healthcare associated pneumonia. 5. Rheumatoid arthritis. 6. Diabetes mellitus, managed with insulin. 7. Hypertension. 8. Remote history of pericarditis. PAST SURGICAL HISTORY: 1. Cataract removal, left eye. 2. AV fistula. ALLERGIES: PENICILLIN, AZITHROMYCIN, NAPROXEN. SOCIAL HISTORY: He is . He is a former tobacco user, quitting 30 years ago. He denies illi cit drug use or alcohol abuse. FAMILY HISTORY: Positive for diabetes. CURRENT HOME MEDICATIONS: 1. Albuterol nebulizer q.i.d. as needed. 2. Aspirin 325 mg daily. 3. Symbicort 160/4.5 two puffs b.i.d. 4. Humulin R 10 units b.i.d. 5. Humulin N 50 units b.i.d. 5. Metoprolol 50 mg b.i.d. 6. Multivitamin 1 tablet daily. 7. Renvela 1600 mg t.i.d. 8. Zocor 20 mg at bedtime. 9. Spiriva 18 mcg inhaled daily. 10. Zantac 150 mg daily. REVIEW OF SYSTEMS: As per history of present illness. Remainder of 12-system review is negative. PHYSICAL EXAMINATION: VITAL SIGNS: Blood pressure 102/59, pulse 97 and regular, respiratory rate 31 to 34 on ventilatory support, oxygen saturations are 100% on current FIO2. GENERAL: This is a well-developed, well-nourished 66-year-old black gentleman, who is intubated on ventilatory support and sedated and is in no acute distress. HEENT: The head is atraumatic and normocephalic. Pupils are equally round and sluggish, but reacti ve. Sclerae and conjunctivae are clear. There are no oral lesions. NECK: Supple, no JVD, thyromegaly, carotid bruits. CHEST: Symmetrical inspiration and expiration. HEART: Regular in rate and rhythm. No significant murmur auscultated. PMI is nondisplaced. Not e nlarged. LUNGS: No obvious adventitious sounds are appreciated with ventilation. ABDOMEN: Soft, nontender, nondistended, without mass or organomegaly. Bowel sounds are appreciated x4. EXTREMITIES: A 2+ pulses in the upper and lower extremities. AV fistula is functional. There is t race edema at the ankles. NEUROLOGIC: Grossly intact. No focal motor deficits. Muscle tone appears normal. A full neuro ex am was not performed due to sedation. DATABASE: EKG is sinus rhythm, nonspecific T changes. ASSESSMENT: 1. Profound hypoglycemia/hypothermia, resolved. 2. Profound hypoxia with severe respiratory acidosis. 3. Bradycardia secondary to #2. This has resolved. 4. Recurrent bradycardia related to hypoxia and dislodgement of ET tube, resolved. 5. End-stage renal disease, on hemodialysis. 6. Diabetes, insulin managed, with recurrent hypoglycemia. 7. Rheumatoid arthritis with rheumatoid lung disease. 8. Remote history of pericarditis. 9. Systemic hypertension. RECOMMENDATIONS: 1. From a cardiac standpoint, his bradycardia seems to be associated with recurrent hypoxia with an d without acidosis. I agree with current management and treatment aimed at stabilization of his und erlying pulmonary issues. There is no further cardiac testing is necessary at this time, and he has not made indication for temporary or permanent pacing given the underlying metabolic reasons for hi s recurrent bradycardia. 2. I would recommend repeat echocardiogram due to his remote history of pericarditis and rheumatoid disease and the possibility of integral change in his LV function due to his risk factors and the p ossibility of acquired coronary atherosclerotic disease. This will be ordered today. We will revie wSimi In the absence of any integral change in his LV function or new wall motion abnormality, no furt her cardiac recommendations at this time. I appreciate the opportunity to participate.
--- NOTE | 2017-01-06 15:53 | PRG ---
DATE OF SERVICE: 01/06/2017 SUBJECTIVE: Mr. Bear self-extubated this morning. Dr. Quiles was chief controller station for the ICU and re-i ntubated him. He only had a very brief period of CPR. He awakens to stimulation and nods, makes ey e contact, moves all of his extremities at this point. He was just re-examined. OBJECTIVE: VITAL SIGNS: He is afebrile. Heart rate is 80, blood pressure is in the 80s, he is on fentanyl dri p, respiratory rate is in the 20s. LUNGS: He has mild rhonchi bilaterally with crackles laterally. HEART: Regular rhythm. ABDOMEN: Soft. IMPRESSION: 1. Status post self-extubation. He did not tolerate this. I suspect because he essentially has a flail chest after cardiopulmonary resuscitation. 2. End-stage renal disease, normal potassium today. 3. Status post arrest with clinical appearance yesterday suggestive of an encephalopathy. EEG yest erday showed diffuse slowing, but no burst suppression and no seizure activity. Obviously, clinical ly, he is improved, but I am not sure we will be able to extubate him for some time, because of his underlying interstitial lung disease combined with his chest wall mechanics.
[2017-01-06] MEDS: Acetaminophen/Codeine 30-300mg Tablet PO SCH (21:59)
[2017-01-07] MEDS: Dextrose 5% in Water 1,000 ML IV PRN (00:04)
[2017-01-07] MEDS: Propofol 1,000 MG/100 ML VIAL IV PRN (05:47)
[2017-01-07] MEDS: Albuterol Sulfate 2.5 mg/3 ml Neb NEB SCH ×3 (06:31→18:25)
[2017-01-07 07:35] LABS: Oxyhemoglobin 94.4 % (94.0-97.0); Sodium 125 mmol/L (135-148)
--- NOTE | 2017-01-07 07:49 | PDOC.PN ---
- Subjective Encounter Start Date: 01/07/17 Encounter Start Time: 07:47 Mr. Bear self extubated himself yesterday morning. He has been re- intubated. He is awake, and following commands. He indicates by nodding, and shaking his head that he does not have pain or trouble breathing. - Objective Resuscitation Status: Resuscitation Status FULL:Full Resuscitation MAR Reviewed: Yes Vital Signs & Weight: Vital Signs (12 hours) Temp Pulse Resp BP Pulse Ox 01/07/17 07:00 98.7 F 01/07/17 06:34 71 109/51 L 01/07/17 06:31 73 21 H 99 01/07/17 06:00 26 H 01/07/17 04:00 28 H 01/07/17 03:00 98.0 F 01/07/17 02:00 23 H 01/07/17 00:00 97.6 F 23 H 01/06/17 23:54 75 22 H 100 01/06/17 22:00 25 H 01/06/17 20:00 98.1 F 77 29 H 100 Weight Admit Weight 190 lb Weight 199 lb 4.766 oz Most Recent Monitor Data Heart Rate from ECG 71 NIBP 92/42 NIBP BP-Mean 64 Respiration from ECG 22 SpO2 100 I&O: 01/06/17 01/07/17 01/08/17 06:59 06:59 06:59 Intake Total 1000 1786.4 Output Total 455 332 10 Balance 545 1454.4 -10 Result Diagrams: 01/06/17 03:51 01/06/17 03:51 Additional Labs: Accuchecks 01/07/17 01/07/17 01/07/17 06:00 04:21 02:28 POC Glucose 121 H 136 H 148 H 01/07/17 01/06/17 01/06/17 00:20 22:13 20:15 POC Glucose 139 H 131 H 155 H 01/06/17 01/06/17 01/06/17 18:42 17:04 12:25 POC Glucose 121 H 137 H 150 H 01/06/17 01/06/17 10:20 08:22 POC Glucose 149 H 153 H Phys Exam - Physical Examination HEENT: PERRLA Respiratory: no wheezing + rales bilaterally Cardiovascular: RRR, no significant murmur, no rub Gastrointestinal: soft, positive bowel sounds Musculoskeletal: no edema + dark discoloration of the first toe on the right foot Dx/Plan - Plan * Respiratory failure- due to Interstitial Lung disease from RA, with possible superimposed Pneumonitis * Continue Broad Spectrum Antibiotics * Ventilator support as per Pulmonary Medicine * DM- ( Hypoglycemia - resolved )-blood glucose has been stable, can therefore reduce the number of accuchecks. * HTN- blood pressure is stable * ESRD- patient is stable on HD * Nutritional Support- will likely need to start tube feeds today
[2017-01-07] MEDS: Amlodipine 10 MG TAB PO SCH (08:09)
[2017-01-07] MEDS: Metoprolol Tartrate 50 MG TAB PO SCH (08:09)
[2017-01-07] MEDS: Heparin 5,000 UNITS/ML VIAL SC SCH ×2 (08:33→20:03)
[2017-01-07] MEDS: guaiFENesin ER 600 MG TAB PO SCH ×2 (08:33→20:03)
[2017-01-07] MEDS: Cefepime 1 GM, Admixture Fee 1 EACH in Sodium Chloride 0.9% 100 ML IVPB SCH (08:33)
[2017-01-07] MEDS: Aspirin 325 MG TAB PO SCH (08:34)
[2017-01-07] MEDS: Multivit, Therapeutic 1 TAB PO SCH (08:34)
[2017-01-07] MEDS: Famotidine 20 MG TAB PO SCH (08:34)
--- NOTE | 2017-01-07 11:11 | PRG ---
DATE OF SERVICE: 01/07/2017 Sebas Bear is examined while he is being dialyzed. He is awake and alert. He nodded that he was comfortable. He moves all of his extremities. PHYSICAL EXAMINATION: VITAL SIGNS: Blood pressure 107/50, heart rate was 80, respiratory rate is in the 20s. LUNGS: Clear anteriorly. HEART: Regular rhythm. ABDOMEN: Abdomen is soft. He did not have a chest x-ray today. I met with family and answered all their questions. He had no lab today either. IMPRESSION: 1. Respiratory failure associated with a code. 2. Status post self-extubation with a code. 3. Flail chest associated with his first code CPR. Weaning from mechanical ventilation will be slow because of his thoracic manny abnormalities.
--- NOTE | 2017-01-07 12:12 | PRG ---
DATE OF SERVICE: 01/07/2017 SUBJECTIVE: This is a 66-year-old gentleman being seen for end-stage renal disease. The patient nava s been intubated and obeys simple commands. PHYSICAL EXAMINATION: GENERAL: On examination, patient is resting. VITAL SIGNS: Afebrile, pulse 87, breathing at 16, blood pressure 107/50. GENERAL APPEARANCE AND MENTAL STATUS: Fair. HEAD/NECK: Normocephalic. Atraumatic. EYES: EOMI. No deformity. EARS: Clear. No ulcers. NOSE: Intact. No lesions. MOUTH: Clear. No discharge. THROAT: Clear. No exudate. LUNGS: Clear. No crackles. CARDIAC: S1, S2. No rub. ABDOMEN: Benign. BS+. GENITALIA/RECTUM: Rivera absent. BACK/EXTREMITIES: Edema 0+ Ulcer- NEUROLOGICAL: Alert and motor intact. SKIN: Rash- Bruise- LYMPHATICS: Edema- Ulcer- LABORATORY DATA: Show hemoglobin . ASSESSMENT AND RECOMMENDATIONS: 1. Stage 6 chronic kidney disease stage. Continue hemodialysis today. Plan an ultrafiltration wit h 4K bath. 2. Anemia, stable. 3. Hypertension, stable. 4. Medications based on glomerular filtration rate are appropriate.
[2017-01-07 12:55] LABS: Modified Allen's Test POSITIVE; Vent YES
[2017-01-07 12:56] LABS: Mechanical Tidal Volume 450 ml
[2017-01-07 12:57] LABS: Mode AC.VC+
[2017-01-07] MEDS: HumaLOG 300 UNITS/3 ML VIAL SC PRN (18:13)
--- NOTE | 2017-01-07 18:18 | PDOC.CTH ---
Cardiology Progress Note - Subjective He remains intubated but is awake and follows commands. - Objective Vital Signs Temp Pulse Resp BP Pulse Ox 01/07/17 17:59 36 H 01/07/17 16:00 97.9 F 23 H 01/07/17 14:03 84 124/56 L 01/07/17 14:02 80 25 H 99 01/07/17 14:00 25 H 01/07/17 12:00 97.6 F 24 H 01/07/17 10:53 71 108/41 L 01/07/17 10:00 23 H 01/07/17 08:09 76 01/07/17 08:00 24 H 01/07/17 07:48 98.7 F 76 21 H 100 01/07/17 07:00 98.7 F 01/07/17 06:34 71 109/51 L 01/07/17 06:31 73 21 H 99 Admit Weight 190 lb Weight 199 lb 4.766 oz 01/06/17 01/07/17 01/08/17 06:59 06:59 06:59 Intake Total 1000 1786.4 100 Output Total 455 332 59 Balance 545 1454.4 41 - Physical Examination General/Neuro: other: (Intubated) Neck: no JVD present Lungs: other: (Corse breath sounds) Heart: RRR Abdomen: NT/ND Extremities: + edema B (1+) - Telemetry Telemetry Rhythm: NSR - Labs Result Diagrams: 01/06/17 03:51 01/06/17 03:51 Troponin/CKMB CK-MB (CK-2) 0.8 ng/mL (0-6.6) 01/04/17 16:30 Troponin I Less than 0.010 ng/mL (< 0.028) 01/04/17 16:30 - Assessment/Plan 1. Acute Hypoxic respiratory insufficiency. 2. Sinus bradycardia, resolved, likely secoindary to #1 3. ESRD on HD 4. RA/RA lung disease. PLAN: - Continue supportive care. - Echocardiogram pending. - Bradycardia resolved. Likely from acidosis and hypoxia.
[2017-01-07] MEDS: Acetaminophen/Codeine 30-300mg Tablet PO SCH (20:03)
[2017-01-07] MEDS: Acetaminophen 500 MG TAB PO PRN (20:04)
[2017-01-08] MEDS: Dextrose 5% in Water 1,000 ML IV PRN (00:03)
[2017-01-08] MEDS: Propofol 1,000 MG/100 ML VIAL IV PRN (00:03)
[2017-01-08] MEDS: Albuterol Sulfate 2.5 mg/3 ml Neb NEB SCH ×4 (01:03→19:10)
[2017-01-08 04:10] LABS: Anion Gap 17 mmol/L (10-20); BUN (Urea Nitrogen) 23 mg/dL (8.4-25.7); Calc. Creatinine Clearance 18 mL/min (70-130); Carbon Dioxide 24 mmol/L (23-31); Chloride 98 mmol/L (98-107); Estimated GFR-MDRD 14
[2017-01-08 04:41] LABS: Hematocrit 29.7 % (42.0-52.0); Neutrophil 70 % (42-75); Red Blood Cell (RBC) Count 3.31 mill/uL (4.70-6.10); White Blood Cell (WBC) Count 12.1 thou/uL (4.8-10.8)
[2017-01-08 07:24] LABS: Oxyhemoglobin 88.2 % (94.0-97.0); Sodium 135 mmol/L (135-148)
[2017-01-08 07:25] LABS: Mechanical Tidal Volume 450 ml; Mode VC+; Modified Allen's Test NOT DONE; Vent YES
--- NOTE | 2017-01-08 08:44 | PDOC.PN ---
- Subjective Encounter Start Date: 01/08/17 Encounter Start Time: 08:42 Mr. Bear is intubated but awake and alert. - Objective Resuscitation Status: Resuscitation Status FULL:Full Resuscitation MAR Reviewed: Yes Vital Signs & Weight: Vital Signs (12 hours) Temp Pulse Resp BP Pulse Ox 01/08/17 07:21 99.2 F 81 21 H 99 01/08/17 07:00 99.2 F 01/08/17 06:26 80 100/43 L 01/08/17 06:24 86 27 H 97 01/08/17 06:00 26 H 01/08/17 04:00 97.3 F L 01/08/17 03:42 26 H 01/08/17 02:25 99 01/08/17 02:21 86 83/40 L 01/08/17 02:00 29 H 01/08/17 01:03 87 25 H 97 01/08/17 00:00 101.7 F H 31 H 01/07/17 22:15 91 87/32 L 01/07/17 22:00 0 L Weight Admit Weight 190 lb Weight 197 lb 8.547 oz Most Recent Monitor Data Heart Rate from ECG 76 NIBP 107/43 NIBP BP-Mean 63 Respiration from ECG 24 SpO2 98 I&O: 01/07/17 01/08/17 01/09/17 06:59 06:59 06:59 Intake Total 1786.4 1493.2 Output Total 332 74 0 Balance 1454.4 1419.2 0 Result Diagrams: 01/08/17 03:38 01/08/17 03:38 Additional Labs: Accuchecks 01/08/17 01/08/17 01/07/17 05:50 00:23 18:09 POC Glucose 116 H 124 H 162 H 01/07/17 12:07 POC Glucose 75 Phys Exam - Physical Examination HEENT: PERRLA + rhonchi bilaterally Cardiovascular: RRR, no significant murmur Gastrointestinal: soft, non-tender, positive bowel sounds Musculoskeletal: no edema Dx/Plan - Plan * Acute respiratory failure- patient continues to require ventilator support * He had a fever to 101.7 last night and has been cultured * Continue Cefipime pending culture results * Nutritional support- he is on tube feeding, and it was reported he had about 400ml of residuals - will add Reglan * DM- blood glucose is stable * Echo results noted.
--- NOTE | 2017-01-08 08:55 | RAD ---
PORTABLE CHEST ONE VIEW: 01/08/2017 4:57 a.m. HISTORY: Respiratory failure. COMPARISON: 01/06/2017 FINDINGS: Endotracheal and nasogastric tubes remain in place. Diffuse infiltrates are seen in the right lung. Infiltrates in the left lung are again noted. No pneumothoraces or large effusions are identified . [place] [facility] [place]
--- NOTE | 2017-01-08 09:17 | PRG ---
DATE OF SERVICE: 01/08/2017 SUBJECTIVE: This is a 66-year-old gentleman being seen for end-stage renal disease. The patient to lerated dialysis well. PHYSICAL EXAMINATION: GENERAL: Patient is resting. VITAL SIGNS: Afebrile, pulse 81, breathing at 16, blood pressure was 107/43. GENERAL APPEARANCE AND MENTAL STATUS: Fair. HEAD/NECK: Normocephalic. Atraumatic. EYES: EOMI. No deformity. EARS: Clear. No ulcers. NOSE: Intact. No lesions. MOUTH: Clear. No discharge. THROAT: Clear. No exudate. LUNGS: Clear. No crackles. CARDIAC: S1, S2. No rub. ABDOMEN: Benign. BS+. GENITALIA/RECTUM: Rivera absent. BACK/EXTREMITIES: Edema 0+ Ulcer- NEUROLOGICAL: Alert and motor intact. SKIN: Rash- Bruise- LYMPHATICS: Edema- Ulcer- LABORATORY DATA: Show hemoglobin is 9.4, potassium is 4.2. ASSESSMENT AND RECOMMENDATIONS: 1. Stage 6 chronic kidney disease. Continue dialysis as per schedule. 2. Hypertension, stable. 3. Anemia, stable. 4. Medications based on glomerular filtration rate are appropriate.
--- NOTE | 2017-01-08 09:30 | PRG ---
DATE OF SERVICE: 01/08/2017 Mr. Bear is on the ventilator, resting comfortably. REVIEW OF SYSTEMS: Not available. PHYSICAL EXAMINATION: VITAL SIGNS: The blood pressure 112/48, pulse is 80, it is regular, sinus. LUNGS: Clear. CARDIAC: Normal S1, S2. ABDOMEN: Soft, nontender. EXTREMITIES: No edema. ASSESSMENT: 1. Periodic of complete heart block apparently related to acidosis. 2. End-stage renal disease. 3. Rheumatoid arthritis apparently affecting his pulmonary status. PLAN: 1. We will stop the beta eun, it has been on hold, but we will stop. 2. We will be available if needed for any problems. It looks like his complete heart block was tho ught to be due to acidosis, hypoxia and was transient and has not recurred. He has a narrow QRS now .
[2017-01-08] MEDS: Heparin 5,000 UNITS/ML VIAL SC SCH ×2 (09:34→20:53)
[2017-01-08] MEDS: Famotidine 20 MG TAB PO SCH (09:34)
[2017-01-08] MEDS: Aspirin 325 MG TAB PO SCH (09:34)
[2017-01-08] MEDS: guaiFENesin ER 600 MG TAB PO SCH ×2 (09:34→20:52)
[2017-01-08] MEDS: Multivit, Therapeutic 1 TAB PO SCH (09:34)
[2017-01-08] MEDS: Amlodipine 10 MG TAB PO SCH (09:35)
[2017-01-08] MEDS: Cefepime 1 GM, Admixture Fee 1 EACH in Sodium Chloride 0.9% 100 ML IVPB SCH (09:52)
[2017-01-08] MEDS ORDERED: Vancomycin HCl 1 GM in Premix Bag 1 BAG IVPB SCH (11:32)
--- NOTE | 2017-01-08 12:48 | PRG ---
DATE OF SERVICE: 01/08/2017 Mr. Bear did well. He awakens. He follows commands. PHYSICAL EXAMINATION: VITAL SIGNS: Heart rate 97, blood pressure 118/60, respiratory rate 20. He still has chest wall mechanics consistent with a flail chest. LUNGS: His lungs are remarkable for mild rhonchi, worse on the right than left. HEART: Regular rhythm. ABDOMEN: Soft. LABORATORY DATA: White count 12.1, hemoglobin 9.4, platelets 289. Sodium 134, potassium 4.6, chlor cynthia 98, bicarb 24, BUN 23, creatinine 5.14. Chest radiograph is unchanged. Mr. Bear had fever last night, he was given 1 dose of vancomycin today. IMPRESSION: 1. Rheumatoid lung disease. 2. End-stage renal disease. 3. Deconditioning. 4. Rib fractures after 2 codes and 2 rounds of CPR. PLAN: Slow weaning. He will be switched back to assist control to a volume ventilation. We will g radually decrease his ventilatory support. I have explained to the that he may require tracheo stomy to wean from ventilation.
[2017-01-08] MEDS: Metoclopramide HCl 10 MG/2 ML VIAL IVP SCH ×2 (15:19→22:26)
[2017-01-08] MEDS: HumaLOG 300 UNITS/3 ML VIAL SC PRN ×2 (18:09→23:53)
[2017-01-08] MEDS: Acetaminophen/Codeine 30-300mg Tablet PO SCH (20:53)
[2017-01-09] MEDS: Propofol 1,000 MG/100 ML VIAL IV PRN ×3 (00:25→21:40)
[2017-01-09] MEDS: Albuterol Sulfate 2.5 mg/3 ml Neb NEB SCH ×4 (00:48→18:29)
[2017-01-09 05:23] LABS: Band 2 % (5-11); Hematocrit 33.9 % (42.0-52.0); Mean Platelet Volume 6.9 fL (7.4-10.4); Neutrophil 92 % (42-75)
[2017-01-09 05:27] LABS: Anion Gap 20 mmol/L (10-20); BUN (Urea Nitrogen) 42 mg/dL (8.4-25.7); Calc. Creatinine Clearance 13 mL/min (70-130); Calcium 8.4 mg/dL (7.8-10.44); Carbon Dioxide 22 mmol/L (23-31); Chloride 94 mmol/L (98-107); Estimated GFR-MDRD 10
[2017-01-09] MEDS: Metoclopramide HCl 10 MG/2 ML VIAL IVP SCH ×3 (05:37→21:03)
[2017-01-09] MEDS: HumaLOG 300 UNITS/3 ML VIAL SC PRN ×2 (05:51→12:37)
[2017-01-09 07:06] LABS: Sodium 132 mmol/L (135-148)
[2017-01-09 07:08] LABS: Mechanical Tidal Volume 450 ml; Mode SIMV; Modified Allen's Test POSITIVE; Pressure Support 8 cmH2O; Vent YES
--- NOTE | 2017-01-09 08:16 | PDOC.PN ---
- Subjective Encounter Start Date: 01/09/17 Encounter Start Time: 08:14 Mr. Bear is intubated, awake and alert. He appears comfortable on the ventilator. - Objective Resuscitation Status: Resuscitation Status FULL:Full Resuscitation MAR Reviewed: Yes Vital Signs & Weight: Vital Signs (12 hours) Temp Pulse Resp BP Pulse Ox 01/09/17 08:00 98.8 F 18 01/09/17 07:00 98.8 F 01/09/17 06:30 69 116/44 L 01/09/17 06:28 72 20 95 01/09/17 06:00 25 H 01/09/17 04:00 98.0 F 21 H 01/09/17 02:30 63 01/09/17 02:00 23 H 01/09/17 00:48 59 L 33 H 97 01/09/17 00:00 98.9 F 28 H 01/08/17 22:36 56 L 01/08/17 22:00 18 Weight Admit Weight 190 lb Weight 196 lb 13.965 oz Most Recent Monitor Data Heart Rate from ECG 63 NIBP 117/39 NIBP BP-Mean 66 Respiration from ECG 19 SpO2 100 I&O: 01/08/17 01/09/17 01/10/17 06:59 06:59 06:59 Intake Total 1493.2 1419.2 Output Total 74 60 0 Balance 1419.2 1359.2 0 Result Diagrams: 01/09/17 04:31 01/09/17 04:05 Additional Labs: Accuchecks 01/09/17 01/08/17 01/08/17 05:50 23:50 17:55 POC Glucose 190 H 200 H 164 H 01/08/17 12:25 POC Glucose 125 H Phys Exam - Physical Examination HEENT: PERRLA Respiratory: no wheezing + rales at the bases Cardiovascular: RRR, no significant murmur Gastrointestinal: soft, non-tender, positive bowel sounds Musculoskeletal: no edema Dx/Plan - Plan * Respiratory Failure- slow wena from the Vent as per Pulmonary * Continue Cefipime * Solumedrol has been added * Patient is now tolerating tube feeding at a reduced rate * Transient Heart block has resolved- ( due to acidosis and hypoxia ) . * All cultures are negative to date
[2017-01-09] MEDS: Heparin 5,000 UNITS/ML VIAL SC SCH ×2 (08:20→21:01)
[2017-01-09] MEDS: Amlodipine 10 MG TAB PO SCH (08:20)
[2017-01-09] MEDS: Famotidine 20 MG TAB PO SCH (08:20)
[2017-01-09] MEDS: Multivit, Therapeutic 1 TAB PO SCH (08:20)
[2017-01-09] MEDS: guaiFENesin ER 600 MG TAB PO SCH ×2 (08:20→21:01)
[2017-01-09] MEDS: Aspirin 325 MG TAB PO SCH (08:20)
--- NOTE | 2017-01-09 08:48 | RAD ---
1 VIEW CHEST: Date: 01/09/17 COMPARISON: 01/08/17. HISTORY: Respiratory distress. Ventilated patient. FINDINGS: Redemonstration of endotracheal and nasogastric tube. Persistent fibrotic changes throughout the branden g parenchyma. No pneumothorax or pleural effusion. Stable configuration of cardiac silhouette. IMPRESSION: No significant interval change. POS: [facility]
[2017-01-09] MEDS: Cefepime 1 GM, Admixture Fee 1 EACH in Sodium Chloride 0.9% 100 ML IVPB SCH (08:51)
--- NOTE | 2017-01-09 12:07 | PRG ---
DATE OF SERVICE: 01/09/2017 SUBJECTIVE: Mr. Bear remains intubated on the ventilator. The nurse tells me when the patient coughs, he occasionally has transient bradycardia. OBJECTIVE: VITAL SIGNS: His blood pressure is 116/44 and pulse is 64, it is regular. LUNGS: Clear. CARDIAC: Normal S1 and S2. ASSESSMENT: 1. Severe pulmonary disease as outlined in the chart. 2. Episodes of bradycardia with coughing probably vegal. PLAN: 1. Continue supportive care. 2. Beta eun has been stopped. No further recommendations at this time.
--- NOTE | 2017-01-09 12:35 | PRG ---
DATE OF SERVICE: 01/09/2017 SUBJECTIVE: This is a 66-year-old gentleman being seen for end-stage renal disease. Patient denies any nausea. The patient is intubated and resting. PHYSICAL EXAMINATION: GENERAL: On examination, patient is resting. VITAL SIGNS: Afebrile, pulse 75, breathing at 16, blood pressure 112/70. GENERAL APPEARANCE AND MENTAL STATUS: Fair. HEAD/NECK: Normocephalic. Atraumatic. EYES: EOMI. No deformity. EARS: Clear. No ulcers. NOSE: Intact. No lesions. MOUTH: Clear. No discharge. THROAT: Clear. No exudate. LUNGS: Clear. No crackles. CARDIAC: S1, S2. No rub. ABDOMEN: Benign. BS+. GENITALIA/RECTUM: Rivera absent. BACK/EXTREMITIES: Edema 0+ Ulcer- NEUROLOGICAL: Alert and motor intact. SKIN: Rash- Bruise- LYMPHATICS: Edema- Ulcer- LABORATORY DATA: Show hemoglobin 10.2, potassium 5.7. ASSESSMENT AND RECOMMENDATIONS: 1. Stage 6 chronic kidney disease. We will plan hemodialysis. 2. Hyperkalemia, plan dialysis. 3. Anemia, stable. 4. Hypertension, stable. We will plan ultrafiltration.
--- NOTE | 2017-01-09 15:03 | PRG ---
DATE OF SERVICE: 01/09/2017 SUBJECTIVE: Sebas Bear awakens. He moves all of his extremities. He has no complaints. He still has flail chest mechanics. OBJECTIVE: VITAL SIGNS: He is afebrile, heart rate is 110, respiratory rate is 20, oximetry is 92% on 2 liters , and blood pressure 136/71. LUNGS: Remarkable for distant crackles. CARDIOVASCULAR: Regular rhythm. ABDOMEN: Soft. LABORATORY DATA: White count 13.8, hemoglobin 12.2, and platelets 270. Sodium 140, potassium 3.5, chloride 113, bicarb 15, BUN 24, creatinine 0.8, and glucose 178. No blood gas today. IMPRESSION AND PLAN: Respiratory failure after 2 codes second of which was caused by self-extubatio n. Neurologically appears intact, I am not sure his chest wall mechanics will improve to a point wh ere he wean without a trach, but we will continue to slowly decrease ventilatory support and increas e his time in the neuro chair at the bedside. Critical care time was 30 minutes.
[2017-01-09] MEDS: Fentanyl 20 MCG/ML 250 ML IVPB SCH (15:51)
[2017-01-09] MEDS: Dextrose 5% in Water 1,000 ML IV PRN (19:16)
[2017-01-09] MEDS: Acetaminophen/Codeine 30-300mg Tablet PO SCH (21:01)
[2017-01-10] MEDS: HumaLOG 300 UNITS/3 ML VIAL SC PRN ×5 (00:20→23:40)
[2017-01-10] MEDS: Albuterol Sulfate 2.5 mg/3 ml Neb NEB SCH ×4 (00:39→18:49)
[2017-01-10 04:35] LABS: Anion Gap 16 mmol/L (10-20); BUN (Urea Nitrogen) 31 mg/dL (8.4-25.7); Calc. Creatinine Clearance 20 mL/min (70-130); Calcium 8.5 mg/dL (7.8-10.44); Carbon Dioxide 26 mmol/L (23-31); Chloride 96 mmol/L (98-107); Estimated GFR-MDRD 16
[2017-01-10 05:10] LABS: Hematocrit 29.1 % (42.0-52.0); Mean Platelet Volume 6.1 fL (7.4-10.4); Neutrophil 91 % (42-75); Red Blood Cell (RBC) Count 3.21 mill/uL (4.70-6.10)
[2017-01-10] MEDS: Metoclopramide HCl 10 MG/2 ML VIAL IVP SCH ×3 (05:30→22:27)
[2017-01-10 07:56] LABS: Oxyhemoglobin 84.4 % (94.0-97.0); Sodium 133 mmol/L (135-148)
[2017-01-10 07:58] LABS: Modified Allen's Test NOT DONE; Vent YES
[2017-01-10 07:59] LABS: Mechanical Tidal Volume 450 ml; Mode SIMV.PSV; Pressure Support 8 cmH2O
[2017-01-10] MEDS: Amlodipine 10 MG TAB PO SCH (08:26)
[2017-01-10] MEDS: Multivit, Therapeutic 1 TAB PO SCH (08:27)
[2017-01-10] MEDS: guaiFENesin ER 600 MG TAB PO SCH ×2 (08:27→20:54)
[2017-01-10] MEDS: Aspirin 325 MG TAB PO SCH (08:27)
[2017-01-10] MEDS: Heparin 5,000 UNITS/ML VIAL SC SCH ×2 (08:27→20:54)
[2017-01-10] MEDS: Famotidine 20 MG TAB PO SCH (08:27)
--- NOTE | 2017-01-10 09:01 | RAD ---
1 VIEW CHEST: Date: 01/10/17 COMPARISON: 01/09/17. HISTORY: Ventilated patient. Respiratory distress. FINDINGS: Stable endotracheal and nasogastric tube. Stable presumed fibrotic changes of the lung parenchyma. N o pneumothorax. IMPRESSION: No significant change. POS: [facility]
[2017-01-10] MEDS: Cefepime 1 GM, Admixture Fee 1 EACH in Sodium Chloride 0.9% 100 ML IVPB SCH (09:09)
--- NOTE | 2017-01-10 10:07 | PDOC.PN ---
- Subjective Encounter Start Date: 01/10/17 Encounter Start Time: 10:05 Mr. Bear is intubated , and awake and alert. He is able to follow commands. He indicates no discomfort. - Objective Resuscitation Status: Resuscitation Status FULL:Full Resuscitation MAR Reviewed: Yes Vital Signs & Weight: Vital Signs (12 hours) Temp Pulse Resp BP Pulse Ox 01/10/17 08:26 63 97/51 L 01/10/17 08:00 98.7 F 15 01/10/17 06:29 63 97/51 L 01/10/17 06:20 63 14 97 01/10/17 06:00 13 01/10/17 04:00 98.9 F 16 01/10/17 02:42 67 01/10/17 02:00 14 01/10/17 00:39 71 17 94 L 01/10/17 00:00 98.7 F 14 01/09/17 22:20 70 Weight Admit Weight 190 lb Weight 195 lb 5.273 oz Most Recent Monitor Data Heart Rate from ECG 76 NIBP 136/55 NIBP BP-Mean 89 Respiration from ECG 17 SpO2 100 I&O: 01/09/17 01/10/17 01/11/17 06:59 06:59 06:59 Intake Total 1419.2 1701.5 Output Total 60 47 0 Balance 1359.2 1654.5 0 Result Diagrams: 01/10/17 04:07 01/10/17 04:07 Additional Labs: Accuchecks 01/10/17 01/10/17 01/09/17 05:14 00:19 17:46 POC Glucose 212 H 213 H 135 H 01/09/17 12:35 POC Glucose 189 H Phys Exam - Physical Examination HEENT: PERRLA Respiratory: no wheezing + rales bilaterally Cardiovascular: RRR, no significant murmur Gastrointestinal: soft, positive bowel sounds Musculoskeletal: no edema pulses are diminished bilaterally, + chronic venous stasis changes Dx/Plan - Plan * Acute respiratory failure- he continues to require ventilator support, reasons outlined by Fax Machine Operator * Wean as tolerated * Bradycardia- resolved * DM-.blood glucose is slightly elevated- likely steroid effect- contine SSI, and may need to add low dose scheduled insulin * Anemia- suspect from renal disease- he had a slight drop in H&H, possibly due to blood draws- will check occult blood, and monitor. Continue Pepcid * HTN- blood pressure is stable
[2017-01-10] MEDS: Propofol 1,000 MG/100 ML VIAL IV PRN (11:59)
--- NOTE | 2017-01-10 13:17 | PRG ---
DATE OF SERVICE: 01/10/2017 SUBJECTIVE: A 67-year-old gentleman being seen for end-stage renal disease. Patient denies any gonzalez sea, vomiting or chest pain. OBJECTIVE: GENERAL: Patient is awake, alert. VITAL SIGNS: Afebrile, pulse 70, breathing at 16, blood pressure 127/75. HEAD/NECK: Normocephalic. Atraumatic. EYES: EOMI. No deformity. EARS: Clear. No ulcers. NOSE: Intact. No lesions. MOUTH: Clear. No discharge. THROAT: Clear. No exudate. LUNGS: Clear. No crackles. CARDIAC: S1, S2. No rub. ABDOMEN: Benign. BS+. GENITALIA/RECTUM: Rivera absent. BACK/EXTREMITIES: Edema 0+ Ulcer-. NEUROLOGICAL: Alert and motor intact. SKIN: Rash- Bruise- LYMPHATICS: Edema- Ulcer- LABORATORY DATA: Hemoglobin 8.9, potassium 4.5. ASSESSMENT AND PLAN: 1. Stage 6 chronic kidney disease. Plan dialysis. 2. Pulmonary edema. Plan dialysis. 2. Hypertension, stable. 4. Medications based on glomerular filtration rate are appropriate.
--- NOTE | 2017-01-10 14:46 | PRG ---
DATE OF SERVICE: 01/10/2017 SUBJECTIVE: Mr. Bear has no complaints. He has mild rhonchi. He is in no distress. He nods t o questions, but I am not sure he is processing questions. OBJECTIVE: VITAL SIGNS: His heart rate is in the 70s, blood pressure 137/58, respiratory rate in the teens. LUNGS: Clear. HEART: Regular rhythm. ABDOMEN: Soft. LABORATORY DATA: White count 11, hemoglobin 8.9, platelets 328,000. Sodium 133, potassium 4.5, chl oride 96, bicarbonate 26, BUN 31 and creatinine 4.48. IMPRESSION: 1. Status post cardiac arrest x2. 2. Underlying interstitial lung disease associated with his rheumatoid arthritis. 3. Longstanding rheumatoid arthritis and rheumatoid deformities. He is amazingly strong in spite o f his rheumatoid arthritis. 4. End-stage renal disease on dialysis because of his chest wall mechanics after CPR, I do not feel he will be able to cough and clear secretions. He has already self extubated since the first code and was unable to adequately ventilate, so I suspect next week will be talking about a tracheostomy plus or minus feeding tube. Critical care time was 30 minutes.
[2017-01-10] MEDS: Acetaminophen/Codeine 30-300mg Tablet PO SCH (20:52)
[2017-01-11] MEDS: Albuterol Sulfate 2.5 mg/3 ml Neb NEB SCH ×5 (00:25→23:24)
[2017-01-11 04:29] LABS: Band 1 % (5-11); Hematocrit 29.9 % (42.0-52.0); Mean Platelet Volume 6.2 fL (7.4-10.4); Neutrophil 82 % (42-75); Red Blood Cell (RBC) Count 3.26 mill/uL (4.70-6.10); White Blood Cell (WBC) Count 11.2 thou/uL (4.8-10.8)
[2017-01-11 04:32] LABS: Anion Gap 15 mmol/L (10-20); BUN (Urea Nitrogen) 38 mg/dL (8.4-25.7); Calc. Creatinine Clearance 21 mL/min (70-130); Calcium 8.4 mg/dL (7.8-10.44); Carbon Dioxide 28 mmol/L (23-31); Chloride 96 mmol/L (98-107); Estimated GFR-MDRD 17
[2017-01-11] MEDS: HumaLOG 300 UNITS/3 ML VIAL SC PRN ×2 (05:57→11:12)
[2017-01-11] MEDS: Metoclopramide HCl 10 MG/2 ML VIAL IVP SCH ×3 (06:00→23:00)
[2017-01-11 07:16] LABS: Mechanical Tidal Volume 450 ml; Mode SIMV.PSV; Modified Allen's Test NOT DONE; Oxyhemoglobin 94.8 % (94.0-97.0); Pressure Support 8 cmH2O; Sodium 133 mmol/L (135-148); Vent YES
--- NOTE | 2017-01-11 07:44 | RAD ---
CHEST ONE VIEW: HISTORY: Ventilated patient. COMPARISON: Chest one view from the prior day. FINDINGS: The patient is intubated. The endotracheal tube tip is in an unchanged position, just craniad to th e abran approximately 1.2 cm. Interstitial opacities are similar. Small effusions are similar. C ardiomegaly is similar. No pneumothorax. The enteric tube tip is at the gastric fundus. IMPRESSION: No significant change in the radiographic appearance of the chest. POS: [facility]
[2017-01-11] MEDS: Multivit, Therapeutic 1 TAB PO SCH (08:45)
[2017-01-11] MEDS: Famotidine 20 MG TAB PO SCH (08:45)
[2017-01-11] MEDS: guaiFENesin ER 600 MG TAB PO SCH ×2 (08:53→21:01)
[2017-01-11] MEDS: Amlodipine 10 MG TAB PO SCH (08:54)
[2017-01-11] MEDS: Aspirin 325 MG TAB PO SCH (08:54)
[2017-01-11] MEDS: Heparin 5,000 UNITS/ML VIAL SC SCH ×2 (08:55→21:03)
--- NOTE | 2017-01-11 09:27 | PDOC.PN ---
- Subjective Encounter Start Date: 01/11/17 Encounter Start Time: 09:25 Mr. Bear has been placed in the Neuro-chair. He indicates that he is comfortable. - Objective Resuscitation Status: Resuscitation Status FULL:Full Resuscitation MAR Reviewed: Yes Vital Signs & Weight: Vital Signs (12 hours) Temp Pulse Resp BP Pulse Ox 01/11/17 08:00 98.2 F 82 22 H 100 01/11/17 06:54 77 154/62 H 01/11/17 06:53 78 15 99 01/11/17 06:00 17 01/11/17 04:00 98.0 F 15 01/11/17 02:12 76 01/11/17 02:00 17 01/11/17 00:25 64 15 100 01/11/17 00:00 97.8 F 13 01/10/17 22:09 68 01/10/17 22:00 16 Weight Admit Weight 190 lb Weight 197 lb 5.019 oz Most Recent Monitor Data Heart Rate from ECG 83 NIBP 144/69 NIBP BP-Mean 103 Respiration from ECG 20 SpO2 100 I&O: 01/10/17 01/11/17 01/12/17 06:59 06:59 06:59 Intake Total 1701.5 1884.2 128 Output Total 47 30 11 Balance 1654.5 1854.2 117 Result Diagrams: 01/11/17 03:23 01/11/17 03:23 Additional Labs: Accuchecks 01/11/17 01/10/17 01/10/17 05:56 23:37 18:09 POC Glucose 222 H 177 H 204 H 01/10/17 12:36 POC Glucose 237 H Phys Exam - Physical Examination HEENT: PERRLA Respiratory: wheezing present, clear to auscultation bilateral Cardiovascular: RRR, no significant murmur Gastrointestinal: soft, non-tender, positive bowel sounds Musculoskeletal: no edema Dx/Plan - Plan * Acute Respiratory failure- due to Rheumatoid lung, and Flail chest from previous CPR * Continue Ventilator support * Continue Cefipime, and Solumedrol * DM- blood glucose is stable * Bradycardia- resolved * Continue PT .
[2017-01-11] MEDS: Cefepime 1 GM, Admixture Fee 1 EACH in Sterile Water 10 ML SLOW IVP SCH (09:28)
--- NOTE | 2017-01-11 13:28 | PRG ---
DATE OF SERVICE: 01/11/2017 Sebas Bear is still on IV of 8. He is sitting in a chair at the bedside. He intermittently i s disoriented and tries to get up and says he wants to go home. PHYSICAL EXAMINATION: VITAL SIGNS: His heart rate is in the 70s, blood pressure 135/57, respiratory rate 16, his O2 is 98 %. LUNGS: His lungs are remarkable for rhonchi bilaterally, he still has flail chest wall mechanics. HEART: Regular rhythm. ABDOMEN: Soft. LABORATORY DATA: White count 11.2, hemoglobin 9.1, platelets 336,000. Sodium 134, potassium 4.7, c hloride 96, bicarb 28, BUN 38, creatinine 4.2. IMPRESSION: Status post cardiorespiratory arrest with CPR with an ICU encephalopathy versus some m ild anoxic insult. For the most part, he follows commands, but intermittently gets disoriented, alo tated and tries to get up and leave. I have explained to the again today that I feel he will m ost likely need a tracheostomy, but will reexamine him tomorrow. His chest wall mechanics are impro renetta compared to last week, but they are not improved much and I do not think he will be able to effe ctively cough. Critical care time was 30 minutes.
[2017-01-11] MEDS: Propofol 1,000 MG/100 ML VIAL IV PRN ×2 (18:12→23:01)
[2017-01-11] MEDS: Epoetin (ESRD) 20,000 UNITS/ML IVP SCH (20:59)
[2017-01-11] MEDS: Acetaminophen/Codeine 30-300mg Tablet PO SCH (21:01)
[2017-01-11] MEDS: Fentanyl 20 MCG/ML 250 ML IVPB SCH (22:38)
[2017-01-12] MEDS: HumaLOG 300 UNITS/3 ML VIAL SC PRN ×3 (00:44→17:34)
--- NOTE | 2017-01-12 01:16 | PRG ---
DATE OF SERVICE: 01/11/2017 SUBJECTIVE: Patient was seen and examined at bedside and overnight events noted. Patient denies an y shortness of breath or chest pain or palpitation. No history of nausea or vomiting or diarrhea or fever or chills or cramps. OBJECTIVE: GENERAL: This is a well built male in no apparent distress. VITAL SIGNS: Temperature 98.9, pulse 76, respiratory rate 18, blood pressure 124/45. HEENT: Atraumatic, normocephalic. Oral mucosa is moist. NECK: Supple. CARDIOVASCULAR: S1, S2 heard. Rate and rhythm regular. RESPIRATORY: Clear to auscultation. GASTROINTESTINAL: Abdomen is soft. MUSCULOSKELETAL: No tenderness, no edema. DERMATOLOGIC: No skin rash. NEUROLOGIC: Alert and awake and oriented X3, no focal neurologic deficits. Moving all the extremit ies. PSYCHIATRIC: Mood and affect normal LABORATORY DATA: Potassium is 4.7, BUN 30, potassium 4.2. ASSESSMENT AND PLAN: 1. End-stage renal disease. We will continue on hemodialysis as tolerated. 2. Pulmonary edema with edema. We will remove fluid with dialysis. 3. Hypertension. 4. Anemia. We will follow. 5. Cardiorenal syndrome as above. Plan is to have dialysis today with fluid removal as tolerated. We will continue to monitor.
[2017-01-12] MEDS: Propofol 1,000 MG/100 ML VIAL IV PRN ×4 (04:15→21:18)
[2017-01-12] MEDS: Metoclopramide HCl 10 MG/2 ML VIAL IVP SCH ×3 (06:30→21:19)
[2017-01-12 06:38] LABS: Band 2 % (5-11); Hematocrit 27.8 % (42.0-52.0); Hypochromia SLIGHT = 6-15 cells (100X) (0-5/hpf); Mean Platelet Volume 6.7 fL (7.4-10.4); Metamyelocyte 1 % (0-0); Neutrophil 76 % (42-75); Red Blood Cell (RBC) Count 3.05 mill/uL (4.70-6.10); White Blood Cell (WBC) Count 11.8 thou/uL (4.8-10.8)
[2017-01-12] MEDS: Albuterol Sulfate 2.5 mg/3 ml Neb NEB SCH ×3 (06:49→18:24)
[2017-01-12 07:25] LABS: Chloride 94 mmol/L (98-107)
[2017-01-12 07:26] LABS: Calcium 8.3 mg/dL (7.8-10.44)
[2017-01-12 07:28] LABS: Anion Gap 14 mmol/L (10-20); Carbon Dioxide 29 mmol/L (23-31)
[2017-01-12 07:30] LABS: Calc. Creatinine Clearance 22 mL/min (70-130); Estimated GFR-MDRD 18
[2017-01-12 07:31] LABS: BUN (Urea Nitrogen) 41 mg/dL (8.4-25.7)
[2017-01-12 07:40] LABS: Oxyhemoglobin 93.7 % (94.0-97.0); Sodium 132 mmol/L (135-148)
[2017-01-12 08:10] LABS: Mechanical Tidal Volume 450 ml; Mode SIMV.PSV; Modified Allen's Test NOT DONE; Pressure Support 8 cmH2O; Vent YES
--- NOTE | 2017-01-12 08:16 | PDOC.PN ---
- Subjective Encounter Start Date: 01/12/17 Encounter Start Time: 08:13 Mr. Bear is intubated and sedated. No concerns voiced by staff. - Objective Resuscitation Status: Resuscitation Status FULL:Full Resuscitation MAR Reviewed: Yes Vital Signs & Weight: Vital Signs (12 hours) Temp Pulse Resp BP Pulse Ox 01/12/17 06:51 82 110/49 L 01/12/17 06:49 75 13 99 01/12/17 06:00 12 01/12/17 04:00 97.9 F 13 01/12/17 03:00 14 01/12/17 02:38 74 01/12/17 02:00 13 01/12/17 01:00 14 01/12/17 00:00 97.9 F 10 L 01/11/17 23:26 76 121/40 L 01/11/17 23:24 97 01/11/17 23:00 10 L 01/11/17 22:00 10 L 01/11/17 21:00 16 Weight Admit Weight 190 lb Weight 196 lb 3.382 oz Most Recent Monitor Data Heart Rate from ECG 72 NIBP 110/49 NIBP BP-Mean 77 Respiration from ECG 12 SpO2 100 I&O: 01/11/17 01/12/17 01/13/17 06:59 06:59 06:59 Intake Total 1884.2 2209.4 Output Total 30 41 Balance 1854.2 2168.4 Result Diagrams: 01/12/17 05:50 01/12/17 06:47 Additional Labs: Accuchecks 01/12/17 01/12/17 01/11/17 05:55 00:25 17:22 POC Glucose 233 H 241 H 148 H 01/11/17 11:10 POC Glucose 242 H Phys Exam - Physical Examination HEENT: PERRLA Respiratory: no rales + rhonchi bilaterally Cardiovascular: RRR, no significant murmur, no rub Gastrointestinal: soft, positive bowel sounds Musculoskeletal: no edema Dx/Plan - Plan * Acute respiratory failure ( Rheumatoid Lung disease and Probable INfectious Pneumonitis)- due to RA- slowly improving * Continue IV steroids and Cefipime * Bradycardia- ( due to metabolic acidosis, and hypoxemia) resolved * Hypoglycemia- resolved * DM- blood glucose is now trending up- will add a low dose of long acting insulin. * Nutritional support- tube feeds
[2017-01-12] MEDS: Insulin Detemir 100 UNITS/ML 8 UNITS in Pre-Filled Syringe 1 EACH SC SCH ×2 (09:08→21:17)
[2017-01-12] MEDS: guaiFENesin ER 600 MG TAB PO SCH ×2 (09:17→21:16)
[2017-01-12] MEDS: Amlodipine 10 MG TAB PO SCH (09:17)
[2017-01-12] MEDS: Aspirin 325 MG TAB PO SCH (09:17)
[2017-01-12] MEDS: Multivit, Therapeutic 1 TAB PO SCH (09:17)
[2017-01-12] MEDS: Famotidine 20 MG TAB PO SCH (09:18)
[2017-01-12] MEDS: Heparin 5,000 UNITS/ML VIAL SC SCH ×2 (09:18→21:17)
--- NOTE | 2017-01-12 09:25 | PRG ---
DATE OF SERVICE: 01/12/2017 SUBJECTIVE: Patient was seen and examined at bedside and overnight events noted. Patient denies an y shortness of breath or chest pain or palpitation. No history of nausea or vomiting or diarrhea or fever or chills or cramps. OBJECTIVE: GENERAL: This is a well built male in no apparent distress. VITAL SIGNS: Temperature 97.9, pulse 75, respiratory rate 18, blood pressure 110/49. HEENT: Intubated. NECK: Supple. CARDIOVASCULAR: S1 and S2 heard, rate and rhythm regular. RESPIRATORY: Clear to auscultation. GASTROINTESTINAL: Abdomen is soft. MUSCULOSKELETAL: No tenderness, no edema. DERMATOLOGIC: No skin rash. NEUROLOGIC: Alert and awake and oriented X3. No focal neurologic deficits. Moving all the extremi ties. PSYCHIATRIC: Mood and affect normal. LABORATORY DATA: Potassium is 4.4, BUN 41, creatinine 4.1. ASSESSMENT AND PLAN: 1. End-stage renal disease. We will continue on dialysis Wednesday, Wednesday, and Wednesday. 2. Edema with respiratory failure. Remove fluid with dialysis. No dialysis today. The patient nava d 2-3 dialysis in a row. 3. Hypertension. 4. Anemia. 5. Cardiorenal syndrome as above. 6. Plan is to continue dialysis with ultrafiltration as tolerated.
--- NOTE | 2017-01-12 09:41 | RAD ---
PORTABLE AP CHEST: Date: 01-12-17 History: On ventilator. Follow up evaluation. Comparison: 01-11-17 FINDINGS: Endotracheal tube and nasogastric tube remain in place and unchanged in position. Again noted are di ffuse interstitial opacities bilaterally, asymmetrically greater on the right as well as at the left lung base. Small bilateral pleural effusions are again seen. Given differences in technique, there has been no interval change from prior exam. IMPRESSION: Stable chest. POS: [facility]
[2017-01-12] MEDS: Cefepime 1 GM, Admixture Fee 1 EACH in Sterile Water 10 ML SLOW IVP SCH (10:44)
--- NOTE | 2017-01-12 13:30 | PRG ---
DATE OF SERVICE: 01/12/2017 Mr. Bear still has flail chest mechanics. PHYSICAL EXAMINATION: VITAL SIGNS: Heart rate 65, respiratory rate is 20, blood pressure 102/36. LUNGS: Lungs remarkable for rhonchi. HEART: Regular rhythm. ABDOMEN: Soft. LABORATORY DATA: White count 11.8, hemoglobin 8.5, platelets 287. Sodium 132, potassium 4.5, chloride 94, bicarbonate 29, BUN 41, creatinine 4.11, glucose 247, pH 7.3 4, CO2 56, pO2 55. IMPRESSION: 1. Respiratory failure. 2. Status post cardiac arrest x2, first of which was unexplained, second was related to self-extuba tion. 3. Sternal fracture secondary to CPR with flail chest mechanics. 4. Underlying pulmonary fibrosis secondary to chronic rheumatoid arthritis. 5. Deconditioning. Recommended tracheostomy and PEG placement to facilitate recovery. Surgery has been consulted. Critical care time was 30 minutes.
[2017-01-12] MEDS ORDERED: Bupivacaine PF 0.5% 30 ML VIAL ONE (14:01)
[2017-01-12] MEDS ORDERED: Lidocaine 2% w/Epinephrine 1:200K 20 ML VIAL ONE (14:01)
[2017-01-12] MEDS ORDERED: Fentanyl 100 MCG/2 ML VIAL ONE (14:04)
[2017-01-12] MEDS ORDERED: Midazolam HCl 5 mg/5 ml Vial ONE (14:05)
[2017-01-12] MEDS: Morphine 4 MG/ML Carpuject SLOW IVP PRN (14:11)
--- NOTE | 2017-01-12 14:22 | CON ---
DATE OF CONSULTATION: 01/12/2017 HISTORY OF PRESENT ILLNESS: Sebas Bear Jr is a 67-year-old black male who I have been a sked to see regarding tracheostomy tube and PEG tube. The patient has been hospitalized, seen by spitalist Service, Neurology, Critical Care, Pulmonary Medicine after the patient was brought in by EMS after he fell out of his bed. He had been feeling poorly at home and returned from synagogue, felt weak and tired. He was hypoglycemic. He was brought in, required intubation and ventilatory suppo rt. He was felt to have a systemic inflammatory response syndrome, hypoglycemia, hypothermia, diabe jossue mellitus type 2, end-stage renal disease, chronic anemia. Efforts to wean him have not been pos sible. Dr. Sow, Nephrology has seen him, following him for his maintenance dialysis. Dr. Javier nava s seen him from a pulmonary standpoint. He has had an electrophysiology study by Neurology with fin dings of diffuse slowing consistent with diffuse encephalopathic process without seizures. The plan is for a tracheostomy and PEG tube today. Risks and benefits of this been discussed and co nsents signed. ALLERGIES: PENICILLIN, AZITHROMYCIN, NAPROXEN. SOCIAL HISTORY: The patient has a functioning left upper arm fistula I placed in the past. PAST SURGICAL HISTORY: AV fistula, cataract removal. MEDICATIONS: Albuterol, aspirin, Symbicort, insulin, metoprolol, vitamins, Renvela, Zocor, Spiriva, Zantac. . PAST MEDICAL HISTORY: 1. End-stage renal disease on maintenance dialysis Wednesday, Wednesday, and Wednesday functioning left u pper arm fistula 2. History of hospital acquired pneumonia in the past. 3. Chronic anemia. 4. Secondary hyperparathyroidism due to end-stage renal disease. 5. Rheumatoid arthritis. 6. Recurrent hypoglycemia. 7. Hypertension. 8. Pericarditis. SOCIAL HISTORY: This patient is . ALCOHOL/TOBACCO: None. PHYSICAL EXAMINATION: GENERAL: The patient is sedated and not arousable. VITAL SIGNS: He is 6 foot tall, weight 196 pounds, 65 heart rate, 102/36. HEENT: Unremarkable. LUNGS: Clear to auscultation. CARDIAC: Regular rate and rhythm without murmur or gallop. ABDOMEN: Soft, nontender, nondistended. EXTREMITIES: Unremarkable. Functioning fistula left upper arm, good thrill and bruit. ASSESSMENT: 1. End-stage renal disease. 2. Respiratory failure. 3. Malnourishment. 4. Dysphagia. 5. Encephalopathy. PLAN: We will plan placement of tracheostomy and PEG tube today.
--- NOTE | 2017-01-12 20:56 | OP ---
DATE OF SERVICE: 01/12/2017 PREOPERATIVE DIAGNOSES: Respiratory failure, encephalopathy, end-stage renal disease, malnutrition, dysphagia. POSTOPERATIVE DIAGNOSES: Respiratory failure, encephalopathy, end-stage renal disease, malnutrition , dysphagia. PROCEDURE: #8 Shiley tracheostomy tube low pressure cuff. Percutaneous endoscopic gastrostomy tube . SURGEON: Jose Mckinney M.D. ANESTHESIA: General. Local 0.5% Marcaine, 30 mL, mixed with 2% Xylocaine, 10 mL PROCEDURE IN DETAIL: The patient was taken to the operating room where under general anesthesia her chest, neck, and abdomen were prepared with Chloraprep, draped in routine fashion. Local anestheti c infiltrated into skin and subcutaneous tissue about all operative sites. Supramanubrial skin inci leila was made and carried down through skin and platysma. The midline strap muscles were reflected laterally. The isthmus of the thyroid divided with the cautery and infracricoid trachea identified, dissected free, and 3-0 Prolene strap sutures placed on either side and air knots tied. Anterior w indow of the trachea resected over two cartilaginous rings and under direct visualization the endotr acheal tube withdrawn and #8 Shiley low pressure cuff tracheostomy tube inserted into the trachea, b alloon inflated, connected to the respirator. Skin incisions on either side were closed with contin uous suture of 3-0 Prolene. Surgicel was placed in the wound for postoperative hemostasis. Sterile dressings applied. Tracheostomy straps secured. Endoscope placed per os under direct visualization and passed throughout the esophagus and into the stomach identifying a good indentation of left subcostal where the area was prepared and anesthetize d with local anesthetic and the trocar catheter introduced percutaneously into the gastric lumen, vi sualized endoscopically. Wire advanced through the trocar and visualized endoscopically and lassoed with a snare and endoscope and snare and wire brought out through the mouth. The wire connected to the feeding device, lubricated and brought back down through the mouth and the stomach lumen and se cured against the abdominal wall with a fixation device and sterile dressing applied. Tube tailored to length and connected to the feeding device. The patient tolerated the procedure well.
[2017-01-12] MEDS: Acetaminophen/Codeine 30-300mg Tablet PO SCH (21:16)
[2017-01-13] MEDS: Albuterol Sulfate 2.5 mg/3 ml Neb NEB SCH ×6 (01:13→22:16)
[2017-01-13] MEDS: Propofol 1,000 MG/100 ML VIAL IV PRN ×2 (02:47→09:10)
[2017-01-13 05:54] LABS: Anisocytosis SLIGHT = 6-15 cells (100X) (0-5/hpf); Band 3 % (5-11); Hematocrit 30.6 % (42.0-52.0); Mean Platelet Volume 6.1 fL (7.4-10.4); Myelocyte 1 % (0-0); Neutrophil 81 % (42-75); Reactive Lymphocytes 1 % (0-10); Red Blood Cell (RBC) Count 3.37 mill/uL (4.70-6.10)
[2017-01-13 06:02] LABS: Anion Gap 17 mmol/L (10-20); BUN (Urea Nitrogen) 61 mg/dL (8.4-25.7); Calc. Creatinine Clearance 17 mL/min (70-130); Carbon Dioxide 25 mmol/L (23-31); Chloride 95 mmol/L (98-107); Estimated GFR-MDRD 13
[2017-01-13 06:41] LABS: Oxyhemoglobin 91.2 % (94.0-97.0); Sodium 132 mmol/L (135-148)
[2017-01-13 06:51] LABS: Mechanical Tidal Volume 450 ml; Mode SIMV; Pressure Support 8 cmH2O; Vent YES
[2017-01-13] MEDS: Metoclopramide HCl 10 MG/2 ML VIAL IVP SCH ×3 (07:12→21:42)
[2017-01-13] MEDS: HumaLOG 300 UNITS/3 ML VIAL SC PRN ×2 (07:17→22:10)
[2017-01-13] MEDS: Famotidine 20 MG TAB PO SCH (08:36)
[2017-01-13] MEDS: Multivit, Therapeutic 1 TAB PO SCH (08:36)
[2017-01-13] MEDS: guaiFENesin ER 600 MG TAB PO SCH ×2 (08:36→21:43)
[2017-01-13] MEDS: Insulin Detemir 100 UNITS/ML 8 UNITS in Pre-Filled Syringe 1 EACH SC SCH ×2 (08:37→22:09)
[2017-01-13] MEDS: Aspirin 325 MG TAB PO SCH (08:39)
[2017-01-13] MEDS: Heparin 5,000 UNITS/ML VIAL SC SCH (08:39)
--- NOTE | 2017-01-13 08:40 | RAD ---
PORTABLE CHEST: History: On ventilator. CCU follow up. Comparison: 01-12-17 FINDINGS: Tracheostomy device has been placed. NG tube removed. Bilateral lung infiltrates with vascular conge stion and interstitial prominence again noted. IMPRESSION: Not significantly changed from yesterday. POS: [facility]
[2017-01-13] MEDS: Amlodipine 10 MG TAB PO SCH (12:25)
[2017-01-13] MEDS: Cefepime 1 GM, Admixture Fee 1 EACH in Sterile Water 10 ML SLOW IVP SCH (12:25)
--- NOTE | 2017-01-13 15:11 | PDOC.PN ---
- Subjective Encounter Start Date: 01/13/17 Encounter Start Time: 15:00 Subjective: f/u for respiratory failure undergoing trach/PEG placement today. -: Remains vent dependent SIMV 35% FIO2, rate 12. HD performed today. - Objective Resuscitation Status: Resuscitation Status FULL:Full Resuscitation MAR Reviewed: Yes Vital Signs & Weight: Vital Signs (12 hours) Temp Pulse Resp BP Pulse Ox 01/13/17 14:00 29 H 01/13/17 13:21 84 01/13/17 12:25 97 126/65 01/13/17 12:00 99 F 29 H 01/13/17 10:18 78 01/13/17 10:00 22 H 01/13/17 08:00 98.2 F 77 18 98 01/13/17 06:28 71 01/13/17 06:00 15 01/13/17 05:00 97.2 F L 01/13/17 04:00 15 Weight Admit Weight 190 lb Weight 202 lb 13.204 oz Most Recent Monitor Data Heart Rate from ECG 100 NIBP 131/42 NIBP BP-Mean 86 Respiration from ECG 24 SpO2 100 I&O: 01/12/17 01/13/17 01/14/17 06:59 06:59 06:59 Intake Total 2209.4 1035.0 160 Output Total 41 460 0 Balance 2168.4 575.0 160 Result Diagrams: 01/13/17 05:20 01/13/17 05:20 Additional Labs: Accuchecks 01/13/17 01/13/17 01/13/17 12:17 07:11 00:37 POC Glucose 102 173 H 167 H 01/12/17 16:33 POC Glucose 224 H Radiology Reviewed by me: Yes (PCXR - trach in place, bilat vasc congestion) EKG Reviewed by me: Yes (Tele - SR in 80's) Phys Exam - Physical Examination sedate on [facility] vent HEENT: oral pharynx no lesions tracheostomy in place, bloody drainage in suction catheter Neck: supple diminished in bases Respiratory: no wheezing Cardiovascular: RRR PEG site intact Gastrointestinal: soft, no distention, positive bowel sounds Musculoskeletal: pulses present, edema present Skin: normal turgor, cap refill <2 seconds Dx/Plan - Plan continue antibiotics, PT/OT, pediatric social worker, respiratory therapy, DVT proph w/ SCDs Continue Cefepime 1gm IV daily -: Continue pulmonary support with SIMV -: HD per Renal service -: Nutritional support with Nepro 30ml/h -: Continue Solumedrol 20mg IV q6h * AM lab: BMP, CBC * * Acute hypoxic resp failure - remains on mech vent with SIMV at 35% FIO2, continue bronchodilators, Cefepime, Solumedrol, PCXR in am * ESRD with HD - continue HD per Renal service * Pneumonitis - likely multifactorial including RA and infectious process, continue IV Cefepime 1gm daily, pulmonary support * Chronic NC Anemia due CKD - stable currently, continue Epo weekly, serial H/H * Nutrition - continue Neprol 30ml/h, s/p PEG placement 01/13/17 * AM lab: BMP, CBC * PCXR in am
[2017-01-13] MEDS ORDERED: Haloperidol Lactate 5 MG/ML VIAL IM PRN (16:50)
[2017-01-13] MEDS ORDERED: Midazolam HCl 2 mg/2 ml Vial SLOW IVP PRN (16:51)
--- NOTE | 2017-01-13 17:29 | PRG ---
DATE OF SERVICE: 01/13/2017 SUBJECTIVE: Sebas Bear still has a flail chest mechanics. OBJECTIVE: GENERAL: He is in no distress. He is still sedated. He will awaken, it is still not clear how dl ly functionally as when he is awake. VITAL SIGNS: His heart rate is in the 80s. Blood pressure 97/29, respiratory rates in the 20s. LUNGS: Distant and clear, fine crackles at his bases. HEART: Regular rhythm. ABDOMEN: Soft. LABORATORY DATA: White count 15, hemoglobin 9.2, platelets 367. Sodium 132, potassium 4.9, chloride 95, bicarbonate 25, BUN 61, creatinine 5.18. He has undergone dialysis today. pH 7.35, CO2 50, pO2 68. IMPRESSION: Respiratory failure after cardiopulmonary resuscitation. He has a trach in. His mecha nics probably preclude complete weaning, this will likely be a slow process. Try to minimize sedati ves and use Haldol for agitation. Critical care time was 30 minutes.
[2017-01-13] MEDS ORDERED: Sodium Bicarb 50 MEQ/50 ML Abboject 8.4% SYRINGE ONE ×2 (17:41→18:05)
--- NOTE | 2017-01-13 17:55 | PRG ---
DATE OF SERVICE: 01/13/2017 SUBJECTIVE: Sebas Bear is doing well today, status post tracheostomy and PEG tube yesterday. Abdomen is soft, nontender. He is tolerating his tube feeds. Tracheostomy site looks good. The p atient is still not responsive at all. There were no complications related to his tracheostomy and PEG tube. His left arm dialysis fistula is working well that had placed in the remote past. At thi s point, I will see him as needed. Please call if necessary.
[2017-01-13] MEDS ORDERED: Vecuronium 10 MG VIAL ONE ×2 (17:59→18:48)
[2017-01-13 18:17] LABS: Sodium 152 mmol/L (135-148)
[2017-01-13 18:18] LABS: Mechanical Tidal Volume 450 ml; Mode SIMV; Pressure Support 8 cmH2O; Vent YES
[2017-01-13] MEDS ORDERED: Norepinephrine 8 MG/0.9% NS 250 ML ONE (18:48)
--- NOTE | 2017-01-13 19:03 | PRG ---
DATE OF SERVICE: 01/13/2017 SUBJECTIVE: Patient was seen and examined at bedside and overnight events noted. Patient denies an y shortness of breath or chest pain or palpitation. No history of nausea or vomiting or diarrhea or fever or chills or cramps. OBJECTIVE: GENERAL: This is a well-built male, very lethargic. VITAL SIGNS: Temperature 99.0, pulse 85, respiratory rate , blood pressure 113/42. HEENT: Atraumatic, normocephalic. Oral mucosa is moist. NECK: Supple. CARDIOVASCULAR: S1 and S2 heard, rate and rhythm regular. RESPIRATORY: Clear to auscultation. GASTROINTESTINAL: Abdomen is soft. MUSCULOSKELETAL: No tenderness, no edema. DERMATOLOGIC: No skin rash. NEUROLOGIC: Lethargic. PSYCHIATRIC: Mood and affect normal. LABORATORY DATA: Potassium is 4.9, BUN 61, and creatinine is 5.9. ASSESSMENT AND PLAN: 1. End-stage renal disease, continue on dialysis, Wednesday, Wednesday, and Wednesday dialysis. 2. Respiratory failure with pulmonary edema. Plan is to remove fluid with dialysis. 3. Hypertension. 4. Anemia. 5. . 6. Plan is to remove fluid with dialysis as tolerated.
--- NOTE | 2017-01-13 19:21 | PRG ---
DATE OF SERVICE: 01/13/2017 SUBJECTIVE: Mr. Bear apparently had an episode of coughing followed by bleeding around his [facility] heostomy site and his tracheostomy tube. Dr. Mckinney and I were both called at the bedside. He very quickly occluded his tracheostomy tube. With a bronchoscope, we were able to dislodge a large clot that was sitting at the end of the tracheostomy tube. The tube was wrapped around the tip and actually he had a ball valve effect, so with exhaling, it wo uld tend to want to occlude the distal part of the tracheostomy tube, but it could easily be dislodg ed with the bronchoscope. This was being done with a swivel adaptor and he was Ambu bagged in a rap id fashion through all this. Pulse was noted throughout the majority of this event, which lasted qu ite some time, but we did briefly lose a pulse. Chest compressions began, immediately epinephrine w as given. He did develop coarse ventricular fibrillation, which required cardioversion, he came allyson in sinus rhythm with a pulse after that. Multiple blood gases were drawn, although it was debatab le whether these are arterial or venous. I believe they were venous. Once we had a good restored p ulse, I valeriy a blood gas and got a pH of 7.51, CO2 of 60 and a pO2 of 226. Multiple amps of bicarbo epi and epinephrine were given during all of this prior to the loss of his pulse to hopefully keep his pH up and then after the loss of his pulse. I met with the family and answered all their questions. At this point in time, he is on a very low dose of epinephrine. I gave him a chemical paralytic once we had jain of his pulse because h e was dyssynchronous with mechanical ventilation. He was not following commands at that point. He does have sedation orders already in place. He was initially ventilated with a rate of 30 and now his rate has been turned down to 22. About 20 minutes after the beginning of this, I reintroduced the bronchoscope to evaluate his tracheobronchi al tree. I found a clot in his right lower lobe bronchus. This was actually removed by withdrawing the bronchoscope. This came out of the tracheostomy tube quite easily. Reintroduction of the bron choscope with a swivel adapter in place revealed no residual large blood clots in his entire tracheo bronchial tree.
--- NOTE | 2017-01-13 19:24 | PRG ---
DATE OF SERVICE: 01/13/2017 SUBJECTIVE: Mr. Bear had sustained ventricular tachycardia that responded to cardioversion. He came back in sinus rhythm with blood pressure of 160s. He has been observed now for about 30 minutes, just his epinephrine was discontinued. He was starte d on Levophed drip. He just developed rapid atrial fibrillation with a rate of 140. His 12-lead looks ischemic anterior ly with his rate. He is being loaded with amiodarone recognizing that he has underlying interstitia l lung disease. I have met with the again and family and answered all their questions.
[2017-01-13] MEDS ORDERED: Digoxin 0.5 MG/2 ML AMP ONE (19:28)
[2017-01-13] MEDS: Amiodarone HCl 450 MG in Dextrose 5% in Water 250 ML IVPB SCH ×2 (19:41)
[2017-01-13] MEDS ORDERED: Amiodarone HCl 150 MG in Dextrose 5% in Water 100 ML IVPB SCH ×2 (20:30)
[2017-01-13 20:41] LABS: Hematocrit 34.5 % (42.0-52.0); Mean Platelet Volume 5.9 fL (7.4-10.4); Red Blood Cell (RBC) Count 3.79 mill/uL (4.70-6.10); White Blood Cell (WBC) Count 41.9 thou/uL (4.8-10.8)
[2017-01-13] MEDS ORDERED: Diltiazem 125 MG in Sodium Chloride 0.9% 100 ML IVPB SCH (20:45)
[2017-01-13] MEDS ORDERED: Digoxin 0.5 MG/2 ML AMP SLOW IVP SCH (20:45)
[2017-01-13 20:47] LABS: Anion Gap 18 mmol/L (10-20); BUN (Urea Nitrogen) 33 mg/dL (8.4-25.7); Calc. Creatinine Clearance 27 mL/min (70-130); Calcium 7.8 mg/dL (7.8-10.44); Carbon Dioxide 33 mmol/L (23-31); Chloride 95 mmol/L (98-107); Estimated GFR-MDRD 22; Phosphorus 4.8 mg/dL (2.3-4.7)
[2017-01-13 20:47] LABS: Oxyhemoglobin 86.9 % (94.0-97.0); Sodium 142 mmol/L (135-148)
[2017-01-13 20:49] LABS: Mechanical Tidal Volume 450 ml; Mode SIMV; Pressure Support 8 cmH2O; Vent YES
[2017-01-13] MEDS ORDERED: Norepinephrine 16 MG, Admixture Fee 1 EACH in Dextrose 5% in Water 234 ML IVPB SCH ×3 (21:00)
[2017-01-13] MEDS: Norepinephrine 16 MG, Admixture Fee 1 EACH in Dextrose 5% in Water 234 ML IVPB SCH ×3 (21:19)
[2017-01-13] MEDS: Acetaminophen/Codeine 30-300mg Tablet PO SCH (21:44)
[2017-01-13 22:10] LABS: Band 1 % (5-11); Metamyelocyte 1 % (0-0)
[2017-01-13] MEDS: Epoetin (ESRD) 20,000 UNITS/ML IVP SCH (22:15)
[2017-01-14] MEDS: Albuterol Sulfate 2.5 mg/3 ml Neb NEB SCH ×7 (00:10→13:24)
[2017-01-14] MEDS: HumaLOG 300 UNITS/3 ML VIAL SC PRN ×4 (01:03→23:47)
--- NOTE | 2017-01-14 02:33 | CON ---
DATE OF CONSULTATION: 01/13/2017 INTENSIVE CARE NOTE I was asked to see this patient around 6:30 this evening as the patient had developed acute respirat ory distress and then developed PEA and then he required CPR as well as an electrocardioversion of v entricular tachycardia, which is degenerated into ventricular fibrillation. After he was converted, subsequently, he then developed atrial fibrillation with rapid ventricular response. I have been i n the Intensive Care Unit with this gentleman for over an hour and a half and trying to do with his arrhythmia. He has been given IV amiodarone. He has been given IV digoxin. He was shocked additio nal 3 times to try to convert him into atrial fibrillation as he was having significant EKG changes what appear to be ischemia with an atrial fibrillation and rapid ventricular response, which did not yet responded to medications. Since that time, the patient has actually been unresponsive the esvin rity of the time, he is on minimal sedation, but is on propofol. I then prepped and draped the dequan ent and inserted a central line into the right femoral vein. At this time, his blood pressure remai ns stable. His chest is clear to auscultation anteriorly. Cardiovascular exam does reveal an irreg ularly irregular tachycardia. There are no pedal pulses palpable. He has no lower extremity edema at this time. The patient is on the ventilator. He has a PEG tube, which was placed, he has also a tracheostomy. IMPRESSION: 1. Respiratory arrest due to blood clot in the trachea or the endotracheal tube, which was aspirate d out. 2. This appears to be more stable. He remains on the ventilator. 3. Ventricular fibrillation, electrocardioversion was successfully converted back to sinus rhythm. 4. Subsequent atrial fibrillation with rapid ventricular response, which did not respond to medical management thus for, nor to electrical cardioversion. We will continue to monitor this patient lois y carefully for that. 5. EKG changes compatible with ischemia in the anterior lateral leads. Hopefully, we will slow the heart rate down to decrease the risk of further ischemic events. We will obtain possibly cardiac e nzymes; however, I was suspected that will be elevated due to the CPR, which was performed as well a s the electrical cardioversions. The overall prognosis is poor for this patient, but we will contin ue our best efforts to see if we can resuscitate the patient and control the heart rate. Hopefully, he will convert to sinus rhythm with the IV amiodarone and may need to start also on IV diltiazem i n order to control the rate. 6. History of pulmonary fibrosis, interstitial lung disease for which this patient has been monitor ed by Dr. Herrera. He remains on the ventilator at this time. Hopefully, amiodarone will be short te rm. This obviously will not be the best choice for this patient, but at this time, he is unable to take oral medication and IV amiodarone may be the best option for the patient since he has had both atrial fibrillation as well as ventricular tachycardia and atrial fibrillation. His potassium was n ot elevated at that time. It is uncertain as the etiology of the atrial fibrillation at this time i s most likely just due to stress-induced irritation. We will continue to monitor carefully. Total time spent with this patient thus far had been an hour and a half.
[2017-01-14] MEDS: Propofol 1,000 MG/100 ML VIAL IV PRN ×2 (02:49→14:37)
[2017-01-14] MEDS: Amiodarone HCl 450 MG in Dextrose 5% in Water 250 ML IVPB SCH ×4 (02:57→16:12)
--- NOTE | 2017-01-14 03:55 | OP ---
INDICATION FOR PROCEDURE: A 66-year-old patient, status post respiratory arrest and ventricular fib rillation, requiring cardioversion and also atrial fibrillation, who I was asked to place a central line in this patient as he has minimal venous access. DESCRIPTION OF PROCEDURE: We tried several attempts to place venous lines, were unable to do so, we then under sterile technique, patient was prepped and draped, and using a right femoral vein approa ch, a triple lumen catheter was placed into the right femoral vein without difficulties or complicat ions. All the lines were flushed with normal saline, and the patient will be given further medicati ons via this line. He had good backflow from all 3 ports of the catheter.
[2017-01-14 04:33] LABS: Anion Gap 12 mmol/L (10-20); BUN (Urea Nitrogen) 39 mg/dL (8.4-25.7); Calc. Creatinine Clearance 24 mL/min (70-130); Calcium 7.8 mg/dL (7.8-10.44); Carbon Dioxide 37 mmol/L (23-31); Chloride 96 mmol/L (98-107); Estimated GFR-MDRD 19
[2017-01-14 05:12] LABS: Hematocrit 31.3 % (42.0-52.0); Mean Platelet Volume 6.2 fL (7.4-10.4); Neutrophil 86 % (42-75); Red Blood Cell (RBC) Count 3.42 mill/uL (4.70-6.10); White Blood Cell (WBC) Count 27.5 thou/uL (4.8-10.8)
[2017-01-14 06:34] VITALS: BMI 27.2
[2017-01-14 07:00] LABS: Oxyhemoglobin 94.8 % (94.0-97.0); Sodium 141 mmol/L (135-148)
[2017-01-14 07:07] LABS: Mechanical Tidal Volume 450 ml; Modified Allen's Test POSITIVE; Vent YES
[2017-01-14 07:08] LABS: Mode PSIMV; Pressure Support 8 cmH2O
[2017-01-14] MEDS: Metoclopramide HCl 10 MG/2 ML VIAL IVP SCH ×3 (07:24→21:03)
--- NOTE | 2017-01-14 08:05 | RAD ---
PORTABLE AP CHEST X-RAY: 01/14/2017 HISTORY: On ventilator. Follow-up evaluation. COMPARISON: 01/13/2017 FINDINGS: Tracheostomy device remains in place. Again noted are increased interstitial and parenchymal opacit ies throughout the lungs bilaterally, greater on the right, and at the left lung base. Given differ ences in technique, the findings are overall similar to the prior exam. No other interval change. IMPRESSION: Diffuse increased interstitial and parenchymal opacities throughout the lungs bilaterally. The esvin rity of these findings are likely related to chronic interstitial lung changes. Superimposed more a cute infectious process could not be entirely excluded. POS: [facility]
[2017-01-14] MEDS ORDERED: Calcium Chloride 1 GM/10 ML Abboject SYRINGE ONE (08:44)
[2017-01-14] MEDS ORDERED: Dextrose 50% Abboject 50 ML SYRINGE ONE (08:44)
[2017-01-14] MEDS: Amlodipine 10 MG TAB PO SCH (09:42)
[2017-01-14] MEDS: Famotidine 20 MG TAB PO SCH (09:45)
[2017-01-14] MEDS: guaiFENesin ER 600 MG TAB PO SCH ×2 (09:46→21:01)
[2017-01-14] MEDS: Insulin Detemir 100 UNITS/ML 8 UNITS in Pre-Filled Syringe 1 EACH SC SCH ×2 (09:48→21:02)
--- NOTE | 2017-01-14 11:14 | PDOC.CTH ---
Cardiology Progress Note - Subjective Events of yesterday discussed with Dr. Herrera and Dr. Mcclelland. Stable since resuscitation efforts completed. Remains sedated on propofol. Requiring pressors for BP support. No ongoing ECG evidence of ischemia. Now converted to sinus rhythm. - Objective Vital Signs Temp Pulse Resp BP Pulse Ox 01/14/17 10:02 79 125/35 L 01/14/17 09:42 85 01/14/17 09:30 79 23 H 100 01/14/17 08:00 98.9 F 85 24 H 100 01/14/17 06:27 84 113/29 L 01/14/17 06:25 82 27 H 100 01/14/17 06:00 27 H 01/14/17 05:00 99.6 F 01/14/17 04:13 73 25 H 99 01/14/17 04:00 26 H 01/14/17 02:15 78 26 H 99 01/14/17 02:00 25 H 01/14/17 00:10 90 24 H 100 01/14/17 00:00 98.2 F 22 H Admit Weight 190 lb Weight 201 lb 0.985 oz 01/13/17 01/14/17 01/15/17 06:59 06:59 06:59 Intake Total 1035.0 2346.1 Output Total 460 50 0 Balance 575.0 2296.1 0 - Physical Examination General/Neuro: NAD Neck: carotid US brisk, no JVD present Lungs: CTA, unlabored respirations Heart: PMI normal, RRR Abdomen: no HSM, NT/ND, soft Extremities: other: (2+ pulses, minimal edema) Other PE findings: Neuro: normal tone, sedated on vent - Labs Result Diagrams: 01/14/17 04:00 01/14/17 04:00 Troponin/CKMB CK-MB (CK-2) 0.8 ng/mL (0-6.6) 01/04/17 16:30 Troponin I Less than 0.010 ng/mL (< 0.028) 01/04/17 16:30 - Assessment/Plan 1. Acute Hypoxic respiratory insufficiency. 2. Sinus bradycardia, resolved, likely secondary to #1. 3. VT secondary to acute respiratory arrest, resolved. 4. PAF, now sinus rhythm on amiodarone. 5. Ischemic ECG changes with rapid rates, resolved with rate control. 6. anoxic brain injury. 7. ESRD on HD 8. RA/RA lung disease. PLAN: - Continue supportive care. - Echo shows normal LV function with mild pulmonary HTN. - Bradycardia resolved. Likely from acidosis and hypoxia. - Will consider diagnostic angiogram if he improves neurologically over time. Prognosis is very poor currently and he is currently not a good candidate for invasive imaging or interventional therapies, as there is no evidence of ongoing ischemia or injury at this time.
--- NOTE | 2017-01-14 11:33 | PDOC.PN ---
- Subjective Encounter Start Date: 01/14/17 Encounter Start Time: 11:31 Mr. Bear is intubated. The events of last night were noted. He will open his eyes, but does not follow commands. - Objective Resuscitation Status: Resuscitation Status FULL:Full Resuscitation MAR Reviewed: Yes Vital Signs & Weight: Vital Signs (12 hours) Temp Pulse Resp BP Pulse Ox 01/14/17 10:02 79 125/35 L 01/14/17 09:42 85 01/14/17 09:30 79 23 H 100 01/14/17 08:00 98.9 F 85 24 H 100 01/14/17 06:27 84 113/29 L 01/14/17 06:25 82 27 H 100 01/14/17 06:00 27 H 01/14/17 05:00 99.6 F 01/14/17 04:13 73 25 H 99 01/14/17 04:00 26 H 01/14/17 02:15 78 26 H 99 01/14/17 02:00 25 H 01/14/17 00:10 90 24 H 100 01/14/17 00:00 98.2 F 22 H Weight Admit Weight 190 lb Weight 201 lb 0.985 oz Most Recent Monitor Data Heart Rate from ECG 82 NIBP 129/15 NIBP BP-Mean 39 Respiration from ECG 25 SpO2 100 I&O: 01/13/17 01/14/17 01/15/17 06:59 06:59 06:59 Intake Total 1035.0 2346.1 Output Total 460 50 0 Balance 575.0 2296.1 0 Result Diagrams: 01/14/17 04:00 01/14/17 04:00 Additional Labs: Accuchecks 01/14/17 01/14/17 01/13/17 05:51 00:44 22:03 POC Glucose 199 H 198 H 246 H 01/13/17 12:17 POC Glucose 102 Phys Exam - Physical Examination HEENT: PERRLA Respiratory: no wheezing, no rales, clear to auscultation bilateral Cardiovascular: RRR, no significant murmur, gallop + S3 Gastrointestinal: soft, positive bowel sounds Musculoskeletal: no edema Dx/Plan - Plan * Acute respiratory failure requiring mechanical vemtilation * Patient developed a clot in his tracheostomy tube which precipitated a cardiac arrest. He developed both AFIB and Ventricular Fibrillation during this time, and has been placed on an Amiodarone drip * Continue as per Critical Care team * DM- blood glucose is stable * HTN - blood pressure is stable * ESRD- continue HD as per Nephrology.
[2017-01-14] MEDS ORDERED: Sodium Bicarb 50 MEQ/50 ML Abboject 8.4% SYRINGE ONE (15:36)
[2017-01-14] MEDS: Cefepime 1 GM, Admixture Fee 1 EACH in Sterile Water 10 ML SLOW IVP SCH (15:45)
--- NOTE | 2017-01-14 15:50 | PRG ---
DATE OF SERVICE: 01/14/2017 SUBJECTIVE: Patient was seen and examined at bedside and overnight events noted. Patient denies an y shortness of breath or chest pain or palpitation. No history of nausea or vomiting or diarrhea or fever or chills or cramps. PHYSICAL EXAMINATION: GENERAL: This is a well-built male, seen in ICU . VITAL SIGNS: Temperature 98.2, pulse 87, respiratory rate 20, blood pressure 124/49. HEENT: Atraumatic, normocephalic. Oral mucosa is moist. Trach present. NECK: Supple. CARDIOVASCULAR: S1, S2 heard. Rate and rhythm regular. RESPIRATORY: Clear to auscultation. GASTROINTESTINAL: Abdomen is soft. MUSCULOSKELETAL: No tenderness. No edema. DERMATOLOGIC: No skin rash. NEUROLOGIC: Very lethargic. PSYCHIATRIC: Mood and affect normal. LABORATORY DATA: Potassium is 3.4, BUN is 39, creatinine is 3.7. ASSESSMENT AND PLAN: 1. End-stage renal disease. Continue on dialysis as tolerated. Plan is to have daily dialysis to keep I's and O's even. He has been getting almost 2-3 liters of fluid. Plan is to have 3 hours of dialysis as tolerated with 3 liters fluid off. I will have ultrafiltration also. 2. Respiratory failure. Plan is to attempt to remove fluid and keep I's and O's even. 3. Hypertension. 4. Anemia. 5. Edema. 6. Respiratory failure. Overall, prognosis is poor. We will have dialysis as tolerated. The dequan ent remains high risk for dialysis.
--- NOTE | 2017-01-14 17:43 | PRG ---
DATE OF SERVICE: 01/14/2017 SUBJECTIVE: The patient continued with atrial fibrillation last night for quite some time. He had m ultiple attempts at cardioversion by Dr. Mcclelland that would briefly put him in sinus rhythm and then he would go back into atrial fibrillation. He is in sinus rhythm this morning. He is not awake. OBJECTIVE: VITAL SIGNS: His heart rate is in the 70s-80s, respiratory rate is per mechanical ventilation. LUNG S: Remarkable for bilateral equal breath sounds. HEART: Regular rhythm. ABDOMEN: Soft. LABORATORY DATA: White count is 27.5, hemoglobin 9.8, platelets 499,000. Sodium 142, potassium 3.4 , chloride 96, bicarbonate 37, BUN 39, creatinine 3.77. His radiograph shows more of an infiltrate o n the right than the left. I suspect this is secondary to his volume resuscitation with his code ye . 2 L was dialyzed off this morning. They plan for 2-3 tomorrow. He needs to continue with daily dialysis for now for volume management. IMPRESSION: 1. Status post presentation of hypoglycemia. His says she believes that this is because he to ok his insulin and did not eat the night before. He was admitted with a diagnosis of pneumonia and sepsis, but I did not find clear evidence of pneumonia. 2. Status post cardiac arrest on the telemetry unit. Given the ischemia seen on his EKG last night when he was in rapid atrial fibrillation, I suspect that a rest may have been mediated by his coron liezth arteries and severe coronary artery disease. 3. Status post self-extubation. He has a flail chest after his first round of CPR and was unable t o cough clear secretions or adequately ventilate, so after a brief code he was reintubated. 4. Status post tracheostomy and PEG placement. 5. Underlying rheumatoid arthritis induced interstitial lung disease. 6. End-stage renal disease on chronic hemodialysis. 7. Status post occlusion of his tracheostomy with a blood clot yesterday and another code associate d with that event, he has very limited reserve. 8. Probable severe coronary artery disease, not a candidate for cardiac catheterization at this poi nt. 9. Status post ventricular tachycardia arrest after he was resuscitated yesterday with a normal pH and normal potassium at the time of the arrest. His pH this morning 7.41, pCO2 of 53, pO2 of 88 on 50%, 10 of PEEP. Continue mechanical ventilation . His prognosis is quite guarded for any type of functional recovery given the multiple setbacks th at he has had this admission. I met with family and answered all their questions.
[2017-01-14] MEDS ORDERED: Albuterol Sulfate 2.5 mg/3 ml Neb NEB SCH (19:00)
[2017-01-14] MEDS: Acetaminophen/Codeine 30-300mg Tablet PO SCH (21:02)
[2017-01-14] MEDS: Norepinephrine 16 MG, Admixture Fee 1 EACH in Dextrose 5% in Water 234 ML IVPB SCH ×3 (23:55)
[2017-01-15 02:56] VITALS: BP 102/32
[2017-01-15] MEDS ORDERED: Sodium Chloride 0.9% 1,000 ML IV SCH (03:15)
[2017-01-15 04:26] LABS: Hematocrit 36.7 % (42.0-52.0); Red Blood Cell (RBC) Count 4.01 mill/uL (4.70-6.10); White Blood Cell (WBC) Count 40.8 thou/uL (4.8-10.8)
[2017-01-15 04:28] LABS: Band 1 % (5-11); Hypochromia SLIGHT = 6-15 cells (100X) (0-5/hpf); Neutrophil 88 % (42-75); Nucleated RBC 4 % (0)
[2017-01-15 04:30] VITALS: TEMP 100.5
[2017-01-15] MEDS: Propofol 1,000 MG/100 ML VIAL IV PRN (04:36)
[2017-01-15] MEDS: Acetaminophen 500 MG TAB PO PRN (04:36)
[2017-01-15] MEDS: Metoclopramide HCl 10 MG/2 ML VIAL IVP SCH (05:28)
[2017-01-15 05:59] LABS: Anion Gap 23 mmol/L (10-20); BUN (Urea Nitrogen) 58 mg/dL (8.4-25.7); Calc. Creatinine Clearance 17 mL/min (70-130); Calcium 8.2 mg/dL (7.8-10.44); Carbon Dioxide 24 mmol/L (23-31); Chloride 95 mmol/L (98-107); Estimated GFR-MDRD 13
--- NOTE | 2017-01-15 06:29 | PDOC.EVN ---
Event Note - Event Note Event Note: Vitaliy rader called at 0555 on 01/15/17. CPR already in progress. ROSC initially achieved, then gradually developed bradycardia and eventually asystole. CPR resumed. Dr. Herrera stopped the code at 0627 after speaking with family. <Harshil Dickson - Last Filed: 01/15/17 06:26> Attending Addendum - Attending Addendum I was present with the residents during the resuscitation efforts with ACLS protocols. After initial ROSC, patient again developed bradycardia followed by asystole- ACLS protocols followed. Code terminated after discussion with family. <Courtney Israel - Last Filed: 01/27/17 15:29>
--- NOTE | 2017-01-15 06:44 | PRG ---
DATE OF SERVICE: 01/15/2017 SUBJECTIVE: Mr. Bear coded earlier this morning. Fairly prolonged period of CPR per ACLS leonard col was undertaken. It was unsuccessful and the code was stopped. I met with family and answered all of their questions. I suspect that this was a cardiac event given the ischemia seen on his EKG when he had rapid atrial fibrillation. Family does not want an autopsy, so Mr. Bear will be released to the home .
--- NOTE | 2017-01-15 16:03 | EKG ---
Test Reason : Blood Pressure : / mmHG Vent. Rate : 141 BPM Atrial Rate : 092 BPM P-R Int : 000 ms QRS Dur : 082 ms QT Int : 268 ms P-R-T Axes : 000 -32 196 degrees QTc Int : 410 ms Atrial fibrillation with rapid ventricular response with premature ventricular or aberrantly conduct ed complexes Left axis deviation Low voltage QRS Inferior infarct (cited on or before 04-JAN-2017) Marked ST abnormality, possible anterolateral subendocardial injury Abnormal ECG When compared with ECG of 04-JAN-2017 17:06, Atrial fibrillation has replaced Sinus rhythm Vent. rate has increased BY [address] now depressed in Anterior leads T wave inversion now evident in Anterolateral leads Confirmed by DR. Tanika BRAVO ([id number]) on 01/15/2017 4:03:29 PM Referred By: DINA Confirmed By:DR. Tanika BRAVO
--- NOTE | 2017-01-15 16:10 | EKG ---
Test Reason : CODED Blood Pressure : / mmHG Vent. Rate : 091 BPM Atrial Rate : 038 BPM P-R Int : 000 ms QRS Dur : 108 ms QT Int : 420 ms P-R-T Axes : 000 125 -42 degrees QTc Int : 516 ms Atrial fibrillation with premature ventricular or aberrantly conducted complexes Right bundle branch block ST elevation consider inferior injury or acute infarct ACUTE KS / STEMI Consider right ventricular involvement in acute inferior infarct Abnormal ECG When compared with ECG of 13-JAN-2017 19:04, (Unconfirmed) Vent. rate has decreased BY 50 BPM Right bundle branch block is now Present Criteria for Inferior infarct are no longer Present Confirmed by DR. Tanika BRAVO ([id number]) on 01/15/2017 4:10:20 PM Referred By: Confirmed By:DR. Tanika BRAVO
--- NOTE | 2017-01-15 18:17 | DIS ---
SUMMARY DATE OF ADMISSION: 01/04/2017 DATE OF : 01/15/2017 PRIMARY CARE PHYSICIAN: Keli Chauhan M.D. DIAGNOSES: Include, 1. Acute respiratory failure secondary to infectious pneumonitis as well as rheumatoid lung. 2. Hypoglycemia. 3. Severe deconditioning. 4. End-stage renal disease on hemodialysis. 5. Probable coronary artery disease. 6. Atrial fibrillation. 7. Ventricular tachycardia. PROCEDURES DONE DURING ADMISSION: The patient had an emergent endotracheal intubation. The patient had an echocardiogram with an ejection fraction estimated at 60% to 65% as well as grade 1/3 diasto lic dysfunction and moderate LVH. The patient also had a tracheostomy performed. HOSPITAL COURSE: Mr. Bear was a 67-year-old gentleman who was initially admitted on 01/04/2017 due to a hypoglycemic episode. This was likely as a result of poor oral intake in the phase of taki ng insulin. The patient developed a cardiac arrest in the telemetry unit and required mechanical in tubation. It was also suspected that some of his respiratory compromise could be due to rheumatoid lung as well as a possible infectious pneumonitis; however, this was not fully confirmed clinically. The patient's hospital course was complicated by several episodes of cardiac arrest, one episode w as secondary to severe bradycardia due to hypoxemia as well as metabolic acidosis. Once this was co rrected with dialysis, the patient's bradycardia resolved. The patient had another cardiac event, l ikely related to bleeding around the tracheostomy tube. After this event, the patient likely suffer ed some anoxic brain injury as he was less responsive than he had been in the past. Unfortunately, after he was medically stabilized with regards to this, he developed yet another cardiac arrest deve loping both atrial fibrillation as well as ventricular tachycardia once again. He underwent ACLS pr otocol for a prolonged period of time and eventually, the family made the decision to stop the ACLS procedure, and the patient was allowed to pass on peacefully on 12/15/2016.
== END 2017-01-15 06:26 | disposition expired | DRG 4 ==
LOC: ERS 22:37 → 2SE 01-04 → CCU 01-04 16:40
PROVIDERS: ADMIT Family Medicine; ATTEND Family Medicine
PROC: 5A12012 Performance of Cardiac Output, Single, Manual (ICD-10-PCS; 2017-01-04)
PROC: 5A1D70Z Performance of Urinary Filtration, Intermittent, Less than 6 Hours Per Day (ICD-10-PCS; 2017-01-04)
PROC: 0BH17EZ Insertion of Endotracheal Airway into Trachea, Via Natural or Artificial Opening (ICD-10-PCS; 2017-01-04)
PROC: 5A1945Z Respiratory Ventilation, 24-96 Consecutive Hours (ICD-10-PCS; 2017-01-04)
PROC: 5A12012 Performance of Cardiac Output, Single, Manual (ICD-10-PCS; 2017-01-06)
PROC: 5A1955Z Respiratory Ventilation, Greater than 96 Consecutive Hours (ICD-10-PCS; 2017-01-06)
PROC: 0BH17EZ Insertion of Endotracheal Airway into Trachea, Via Natural or Artificial Opening (ICD-10-PCS; 2017-01-06)
PROC: 0B110F4 Bypass Trachea to Cutaneous with Tracheostomy Device, Open Approach (ICD-10-PCS; principal; 2017-01-12)
PROC: 0DH63UZ Insertion of Feeding Device into Stomach, Percutaneous Approach (ICD-10-PCS; 2017-01-12)
PROC: 0BC68ZZ Extirpation of Matter from Right Lower Lobe Bronchus, Via Natural or Artificial Opening Endoscopic (ICD-10-PCS; 2017-01-13)
PROC: 5A12012 Performance of Cardiac Output, Single, Manual (ICD-10-PCS; 2017-01-13)
PROC: 06HY33Z Insertion of Infusion Device into Lower Vein, Percutaneous Approach (ICD-10-PCS; 2017-01-13)
PROC: 5A12012 Performance of Cardiac Output, Single, Manual (ICD-10-PCS; 2017-01-15)
DX: A41.9 Sepsis, unspecified organism (principal); I49.01 Ventricular fibrillation; S22.5XXA Flail chest, initial encounter for closed fracture; G93.40 Encephalopathy, unspecified; I44.2 Atrioventricular block, complete; J96.01 Acute respiratory failure with hypoxia; J96.02 Acute respiratory failure with hypercapnia; J18.9 Pneumonia, unspecified organism; G93.1 Anoxic brain damage, not elsewhere classified; N18.6 End stage renal disease; J84.9 Interstitial pulmonary disease, unspecified; I47.2 Ventricular tachycardia; E46 Unspecified protein-calorie malnutrition; N25.81 Secondary hyperparathyroidism of renal origin; E87.2 Acidosis; E87.1 Hypo-osmolality and hyponatremia; J44.0 Chronic obstructive pulmonary disease with (acute) lower respiratory infection; I13.11 Hypertensive heart and chronic kidney disease without heart failure, with stage 5 chronic kidney disease, or end stage renal disease; R13.10 Dysphagia, unspecified; E11.22 Type 2 diabetes mellitus with diabetic chronic kidney disease; E11.649 Type 2 diabetes mellitus with hypoglycemia without coma; D53.9 Nutritional anemia, unspecified; Z79.4 Long term (current) use of insulin; M06.9 Rheumatoid arthritis, unspecified; Z99.2 Dependence on renal dialysis; I46.9 Cardiac arrest, cause unspecified; Y84.8 Other medical procedures as the cause of abnormal reaction of the patient, or of later complication, without mention of misadventure at the time of the procedure; Y92.230 Patient room in hospital as the place of occurrence of the external cause; E87.5 Hyperkalemia; I25.10 Atherosclerotic heart disease of native coronary artery without angina pectoris; Z87.891 Personal history of nicotine dependence; D63.1 Anemia in chronic kidney disease; I48.0 Paroxysmal atrial fibrillation; Z68.25 Body mass index [BMI] 25.0-25.9, adult
CPT/HCPCS: 36415; 36416; 51702; 71010; 80048; 80053; 80202; 81003; 81015; 82330; 82553; 82803; 82805; 83036; 83605; 83735; 84100; 84484; 85007; 85025; 85027; 87040; 87086; 87340; 90935; 92950; 93005; 93010; 93306; 94002; 94003; 94640; 94760; 95816; 95819; 96361; 96365; 96375; A4216; G0257; G8978-GP-CM; G8979-GP-CJ; J0171; J0282; J0461; J0692; J1160; J1644; J1815; J2060; J2250; J2270; J2704; J2765; J2920; J3010; J3370; J7050; J7070; J7611; J7620; J7644; Q4081; S0020